=== PATIENT | male | born 1955 | race Caucasian/White ===

== ENCOUNTER 2016-08-31 08:55 | Observation (INO) | payer BC ==
[2016-08-31] MEDS ORDERED: ONDANSETRON 4 MG/2 ML VIAL IVP STA (09:11)
[2016-08-31] MEDS ORDERED: SODIUM CHLORIDE 0.9% 1,000 ML IV STA (09:11)
[2016-08-31 09:42] LABS: Basophils % (A) 1 %; CH 30.8; CHCM 35.1; Eosinophils # (A) 0.1 k/uL (0-0.7); Eosinophils % (A) 2 %; HCT 46.5 % (39.0-53.0); HDW 3.33; HGB 16.2 gm/dL (13.0-17.5); Luc # (Auto) 0.09; Luc % (Auto) 2; Lymphocytes # (A) 1.1 k/uL (1.0-4.8); Lymphocytes % (A) 25 %; MCH 30.7 pg (25.0-35.0); MCHC 34.8 g/dL (31.0-37.0); MCV 88.2 fL (80.0-100.0); Mean Platelet Volume 7.5; Monocytes # (A) 0.3 k/uL (0-1.0); Monocytes % (A) 6 %; Neutrophils # (A) 2.9 k/uL (1.3-7.7); Neutrophils % (A) 65 %; RBC 5.27 m/uL (4.30-5.90); WBC 4.5 k/uL (3.8-10.6); WBC (Perox) 4.53
--- NOTE | 2016-08-31 09:48 | CT ---
EXAMINATION TYPE: CT brain wo con DATE OF EXAM: 08/31/2016 9:44 AM COMPARISON: NONE HISTORY: 60-year-old male states near syncope and hypertension today. TECHNIQUE: Examination was done in axial plane without intravenous contrast. Coronal and sagittal reconstructio ns performed. CT DLP: 1150 mGycm Automated exposure control for dose reduction was used. FINDINGS: There is no evidence of acute intracranial hemorrhage, acute ischemic changes, mass, mass-effect, or extra-axial fluid collection. There is no effacement of cerebral sulci or basal subarachnoid cister ns. There is no hydrocephalus. There is no midline shift. Pham-white matter distinction is preserv ed. Paranasal sinuses and mastoid air cells are well pneumatized. Orbits and globes are intact. IMPRESSION: No acute intracranial abnormality seen.
--- NOTE | 2016-08-31 09:50 | XR ---
EXAMINATION TYPE: XR chest 2V DATE OF EXAM: 08/31/2016 9:45 AM COMPARISON: 07/04/2013 HISTORY: 60-year-old male with weakness TECHNIQUE: Frontal and lateral views FINDINGS: Heart is borderline enlarged. Aorta within normal limits.. No consolidation or pleural effusion seen. IMPRESSION: Borderline cardiomegaly without acute cardiopulmonary process.
[2016-08-31 09:53] LABS: ALT 53 U/L (21-72); AST 44 U/L (17-59); Alkaline Phosphatase 47 U/L (38-126); Anion Gap 13 mmol/L; Blood Urea Nitrogen 20 mg/dL (9-20); Calcium 8.8 mg/dL (8.4-10.2); Carbon Dioxide 25 mmol/L (22-30); Chloride 105 mmol/L (98-107); Glucose 114 mg/dL (74-99); Non-African American GFR(MDRD) 55 (>60 ml/min/1.73 sqM); Potassium 4.4 mmol/L (3.5-5.1); Sodium 143 mmol/L (137-145); Total Bilirubin 0.7 mg/dL (0.2-1.3); Total Protein 6.7 g/dL (6.3-8.2)
[2016-08-31 10:09] LABS: INR 1.1 (<1.1); Partial Thromboplastin Time 24.8 sec (22.0-30.0); Prothrombin Time 11.3 sec (9.0-12.0)
[2016-08-31 10:15] LABS: Troponin I 0.033 ng/mL (0.000-0.034)
[2016-08-31 10:16] LABS: Creatine Kinase MB 2.7 ng/mL (0.0-2.4)
[2016-08-31] MEDS ORDERED: ACETAMINOPHEN TAB 500 MG TAB PO STA (10:42)
[2016-08-31 10:54] LABS: Appearance,Urine Clear (Clear); Bilirubin,Urine Negative (Negative); Glucose,Urine (UA) Negative (Negative); Ketones,Urine Negative (Negative); Leukocyte Esterase,Urine Negative (Negative); Nitrite,Urine Negative (Negative); PH, Urine 5.5 (5.0-8.0); Protein,Urine Negative (Negative); Specific Gravity,Urine 1.008 (1.001-1.035); UA Billing (MACRO vs. MICRO) CHEM; Urobilinogen,Urine <2.0 mg/dL (<2.0)
[2016-08-31] MEDS ORDERED: NITROGLYCERIN SL TABS 0.4 MG TAB SUBLINGUAL PRN (11:38)
[2016-08-31] MEDS ORDERED: HEPARIN SODIUM,PORCINE 5,000 UNIT/ML 1 ML VIAL IV ONE (11:38)
[2016-08-31] MEDS ORDERED: ACETAMINOPHEN TAB 325 MG TAB PO PRN (11:38)
--- NOTE | 2016-08-31 11:38 | ED ---
Weakness HPI - General Chief complaint: Weakness Stated complaint: Weakness Time Seen by Provider: 08/31/16 08:55 Source: patient, EMS Mode of arrival: EMS Limitations: no limitations - History of Present Illness Initial comments: Draining about generalized weakness, he woke up this morning and didn't feel right he said he almost passed out he laid on the floor he felt nauseous but he didn't throw up he felt like he needs about moving his bowels but there was no bowel movement no diarrhea complaining about headache is concerned about his heart he has a history of heart disease. He has no chest pain he is not short winded no abdominal pain has nausea feel so weak and at home his blood pressure was elevated. Denies any blurred vision no slurred speech no signs of TIA or CVA no neck stiffness, review of system is negative otherwise - Related Data Home Medications Medication Instructions Recorded Confirmed Aspirin 81 mg PO DAILY 08/31/16 08/31/16 Clopidogrel [Plavix] 75 mg PO DAILY 08/31/16 08/31/16 Famotidine [Pepcid] 40 mg PO HS 08/31/16 08/31/16 Levothyroxine Sodium [Synthroid] 150 mcg PO DAILY 08/31/16 08/31/16 Lisinopril-Hctz 20-12.5 mg 1 tab PO DAILY 08/31/16 08/31/16 [Zestoretic 20-12.5] Metoprolol Tartrate [Lopressor] 25 mg PO QAM 08/31/16 08/31/16 Modafinil [Provigil] 200 mg PO DAILY 08/31/16 08/31/16 PARoxetine [Paxil] 20 mg PO HS 08/31/16 08/31/16 Rosuvastatin Calcium [Crestor] 40 mg PO HS 08/31/16 08/31/16 Allergies Allergy/AdvReac Type Severity Reaction Status Date / Time lactase [From Dairy Aid] Allergy Mild Rash/Hives Verified 08/31/16 10:03 Review of Systems ROS Statement: Those systems with pertinent positive or pertinent negative responses have been documented in the HPI. ROS Other: All systems not noted in ROS Statement are negative. Past Medical History Past Medical History: Coronary Artery Disease (CAD), Hypertension, Thyroid Disorder History of Any Multi-Drug Resistant Organisms: None Reported Past Surgical History: Bowel Resection Additional Past Surgical History / Comment(s): Cataract surgery, 2 Stents Past Psychological History: No Psychological Hx Reported Smoking Status: Never smoker Past Alcohol Use History: Occasional Past Drug Use History: None Reported General Exam - General Exam Comments Initial Comments: General: The patient is awake and alert, he looks pale and anxious Skin: Skin is warm and dry and no rashes or lesions are noted. Eye: Pupils are equal, round and reactive to light, extra-ocular movements are intact; there is normal conjunctiva bilaterally. Ears, nose, mouth and throat: There are moist mucous membranes and no oral lesions. Neck: The neck is supple, there is no tenderness Cardiovascular: There is a regular rate and rhythm. No murmur, rub or gallop is appreciated. Respiratory: To auscultation bilateral, no wheezing no rhonchi no distress respiratory warner noticed Gastrointestinal: Soft, non-distended, non-tender abdomen without masses or organomegaly noted. There is no rebound or guarding present. Bowel sounds are unremarkable. Back: There is no tenderness to palpation in the midline. There is no obvious deformity. Musculoskeletal: Normal ROM, no tenderness, There is no pedal edema. There is no calf tenderness or swelling. No cords were appreciated. Neurological: CN II-XII intact, Cranial nerves III through XII are intact. There are no obvious motor or sensory deficits. Coordination appears grossly intact. Speech is normal. Psychiatric: Cooperative, appropriate mood & affect, normal judgment. Limitations: no limitations Course Vital Signs 08/31/16 08/31/16 09:02 09:56 Temperature 98.3 F Pulse Rate 68 Pulse Rate [ 58 L Right Sitting] Pulse Rate [ 62 Right Standing] Pulse Rate [ 61 Right Supine] Respiratory 18 Rate Blood Pressure 153/79 Blood Pressure 154/85 [Left Arm Sitting] Blood Pressure 146/85 [Left Arm Standing] Blood Pressure 149/82 [Left Arm Supine] O2 Sat by Pulse 97 Oximetry EKG Findings - EKG Comments: EKG Findings:: EKG is a sinus bradycardia with a first-degree AV block, rate is 57 [place] interval is 228 QRS duration is 94 QT/QTc is 424/4 review of this EKG shows some flattening of the T-wave in aVF T-wave inversion in V1 no ST elevation noticed in this EKG Medical Decision Making - Lab Data Result diagrams: 08/31/16 09:20 08/31/16 09:20 Lab Results 08/31/16 08/31/16 08/31/16 Range/Units 09:20 09:20 09:20 WBC 4.5 (3.8-10.6) k/uL RBC 5.27 (4.30-5.90) m/uL Hgb 16.2 (13.0-17.5) gm/dL Hct 46.5 (39.0-53.0) % MCV 88.2 (80.0-100.0) fL MCH 30.7 (25.0-35.0) pg MCHC 34.8 (31.0-37.0) g/dL RDW 16.0 H (11.5-15.5) % Plt Count 167 (150-450) k/uL Neutrophils % 65 % Lymphocytes % 25 % Monocytes % 6 % Eosinophils % 2 % Basophils % 1 % Neutrophils # 2.9 (1.3-7.7) k/uL Lymphocytes # 1.1 (1.0-4.8) k/uL Monocytes # 0.3 (0-1.0) k/uL Eosinophils # 0.1 (0-0.7) k/uL Basophils # 0.0 (0-0.2) k/uL PT (9.0-12.0) sec INR (<1.1) APTT (22.0-30.0) sec Sodium 143 (137-145) mmol/L Potassium 4.4 (3.5-5.1) mmol/L Chloride 105 (98-107) mmol/L Carbon Dioxide 25 (22-30) mmol/L Anion Gap 13 mmol/L BUN 20 (9-20) mg/dL Creatinine 1.34 H (0.66-1.25) mg/dL Est GFR (MDRD) Af Amer >60 (>60 ml/min/1.73 sqM) Est GFR (MDRD) Non-Af 55 (>60 ml/min/1.73 sqM) Glucose 114 H (74-99) mg/dL Calcium 8.8 (8.4-10.2) mg/dL Total Bilirubin 0.7 (0.2-1.3) mg/dL AST 44 (17-59) U/L ALT 53 (21-72) U/L Alkaline Phosphatase 47 (38-126) U/L Total Creatine Kinase 169 (55-170) U/L CK-MB (CK-2) 2.7 H* (0.0-2.4) ng/mL CK-MB (CK-2) Rel Index 1.6 Troponin I 0.033 (0.000-0.034) ng/mL Total Protein 6.7 (6.3-8.2) g/dL Albumin 4.2 (3.5-5.0) g/dL TSH 2.650 (0.465-4.680) mIU/L Urine Color Urine Appearance (Clear) Urine pH (5.0-8.0) Ur Specific [place] (1.001-1.035) Urine Protein (Negative) Urine Glucose (UA) (Negative) Urine Ketones (Negative) Urine Blood (Negative) Urine Nitrate (Negative) Urine Bilirubin (Negative) Urine Urobilinogen (<2.0) mg/dL Ur Leukocyte Esterase (Negative) 08/31/16 08/31/16 Range/Units 09:20 09:45 WBC (3.8-10.6) k/uL RBC (4.30-5.90) m/uL Hgb (13.0-17.5) gm/dL Hct (39.0-53.0) % MCV (80.0-100.0) fL MCH (25.0-35.0) pg MCHC (31.0-37.0) g/dL RDW (11.5-15.5) % Plt Count (150-450) k/uL Neutrophils % % Lymphocytes % % Monocytes % % Eosinophils % % Basophils % % Neutrophils # (1.3-7.7) k/uL Lymphocytes # (1.0-4.8) k/uL Monocytes # (0-1.0) k/uL Eosinophils # (0-0.7) k/uL Basophils # (0-0.2) k/uL PT 11.3 (9.0-12.0) sec INR 1.1 (<1.1) APTT 24.8 (22.0-30.0) sec Sodium (137-145) mmol/L Potassium (3.5-5.1) mmol/L Chloride (98-107) mmol/L Carbon Dioxide (22-30) mmol/L Anion Gap mmol/L BUN (9-20) mg/dL Creatinine (0.66-1.25) mg/dL Est GFR (MDRD) Af Amer (>60 ml/min/1.73 sqM) Est GFR (MDRD) Non-Af (>60 ml/min/1.73 sqM) Glucose (74-99) mg/dL Calcium (8.4-10.2) mg/dL Total Bilirubin (0.2-1.3) mg/dL AST (17-59) U/L ALT (21-72) U/L Alkaline Phosphatase (38-126) U/L Total Creatine Kinase (55-170) U/L CK-MB (CK-2) (0.0-2.4) ng/mL CK-MB (CK-2) Rel Index Troponin I (0.000-0.034) ng/mL Total Protein (6.3-8.2) g/dL Albumin (3.5-5.0) g/dL TSH (0.465-4.680) mIU/L Urine Color Light Yellow Urine Appearance Clear (Clear) Urine pH 5.5 (5.0-8.0) Ur Specific [place] 1.008 (1.001-1.035) Urine Protein Negative (Negative) Urine Glucose (UA) Negative (Negative) Urine Ketones Negative (Negative) Urine Blood Negative (Negative) Urine Nitrate Negative (Negative) Urine Bilirubin Negative (Negative) Urine Urobilinogen <2.0 (<2.0) mg/dL Ur Leukocyte Esterase Negative (Negative) Critical Care Time Total Critical Care Time: 35 Critical Care Time: She came in with her not feeling well and he said he got very close to passing out he laid on the floor and he didn't totally pass out he was concerned about his heart his troponin and he is 0.033 which is very high end of normal with a history of heart disease in multiple risk factors medical bed and heparinize him he agrees with that he'll be discharged he be admitted to Dr. Muniz service and cardiology be consulted Disposition Clinical Impression: Pre-syncope, Generalized weakness, Ischemic heart disease Disposition: ADMITTED IP TO THIS HOSP Condition: Good
[2016-08-31] MEDS: HEPARIN SODIUM,PORCINE/D5W PMX 25,000 UNIT in DEXTROSE/WATER 1 500ML.BAG IV SCH (12:17)
[2016-08-31] MEDS: NAPROXEN 250 MG TAB PO PRN (16:39)
[2016-08-31 16:40] LABS: Troponin I 0.027 ng/mL (0.000-0.034)
[2016-08-31] MEDS: SODIUM CHLORIDE 0.9% 1,000 ML IV SCH (16:40)
--- NOTE | 2016-08-31 19:18 | HP ---
Patient is a 60-year-old gentleman with a known history of coronary artery disease and multiple stents in place and had a stress test that was done about a couple months ago which was essentially negative, came in with complaints of generalized fatigue, did not feel well and almost passed out, laid on the floor, felt nauseous. Denied any chest pain. Denied any lightheadedness, diaphoresis. Patient's present symptoms are not similar to the symptoms when he had a myocardial infarction in the past. Patient denied any present chest pain. Patient denied any cough, runny nose. REVIEW OF SYSTEMS: CONSTITUTIONAL: No fever, no malaise, no fatigue. HEENT: No recent visual problems or hearing problems. Denied any sore throat. CARDIOVASCULAR: No chest pain, orthopnea, PND, no palpitations, no syncope. PULMONARY: No shortness of breath, no cough, no hemoptysis. GASTROINTESTINAL: No diarrhea, no nausea, no vomiting, no abdominal pain. Normoactive bowel sounds. NEUROLOGICAL: No headaches, no weakness, no numbness. HEMATOLOGICAL: Denies any bleeding or petechiae. GENITOURINARY: Denies any burning micturition, frequency, or urgency. MUSCULOSKELETAL/RHEUMATOLOGICAL: Denies any joint pain, swelling, or any muscle pain. ENDOCRINE: Denies any polyuria or polydipsia. The rest of the 14 point review of systems is negative. HOME MEDICATIONS: 1. Aspirin. 2. Plavix. 3. Famotidine. 4. Levothyroxine. 5. Lisinopril/hydrochlorothiazide. 6. Metoprolol. 7. Modafinil. 8. Paroxetine and 9. Lovastatin. ALLERGIES: ALLERGIC TO LACTASE. PAST MEDICAL HISTORY: Coronary artery disease with multiple stents in the past, hypertension, hypothyroidism, bowel resection surgery in the past. SOCIAL HISTORY: Denied smoking, alcohol abuse or any drug abuse. FAMILY HISTORY: Significant for hypertension, coronary artery disease in the family. PHYSICAL EXAMINATION: VITAL SIGNS: Temperature 98.0, pulse of 58, respiratory rate of 18, blood pressure is 154/85, saturating at 95% on room air. GENERAL: Morbidly obese, alert and oriented x3, not in any acute distress. Well developed, well nourished. HEENT: Pupils are round and equally reacting to light. EOMI. No scleral icterus. No conjunctival pallor. Normocephalic, atraumatic. No pharyngeal erythema. No thyromegaly. CARDIOVASCULAR: S1 and S2 present. No murmurs, rubs, or gallops. PULMONARY: Chest is clear to auscultation, no wheezing or crackles. ABDOMEN: Soft, nontender, nondistended, normoactive bowel sounds. No palpable organomegaly. MUSCULOSKELETAL: No joint swelling or deformity. EXTREMITIES: No cyanosis, clubbing, or pedal edema. NEUROLOGICAL: Gross neurological examination did not reveal any focal deficits. SKIN: No rashes. LABORATORY DATA: EKG showed some bradycardia with first-degree AV block. CBC, CMP, essentially within normal limits except for elevated creatinine of 1.34. I do not know his BUN. Orthostatic vitals are negative. CBC essentially within normal limits. Chest x-ray was reviewed; essentially negative ( ). Patient has minimally elevated troponin of 0.033, because of which ER is concerned and because of his history, patient is admitted. UA is essentially negative. ASSESSMENT AND PLAN: 1. Mildly elevated troponins probably related to his renal failure. Patient does not have any symptoms consistent with acute myocardial infarction. Anyway, patient was ruled out with 2 more sets of troponins and EKG and Cardiology was counseled concerning his previous history. 2. Morbid obesity with sleep apnea. Continue with continuous positive airway pressure machine at home. 3. Significant family history of coronary artery disease in the past. 4. Hypertension. 5. Hypothyroidism. 6. Possible mild acute renal failure probably related to medications include lisinopril and hydrochlorothiazide. I will hold those today. Patient will be on IV fluids and will monitor him today. Will repeat kidney function and electrolytes, input and output, and possibility of discharge tomorrow. 7. I will leave the decision of further testing for possibility of acute coronary syndrome because of elevated troponins to Cardiology.
[2016-08-31] MEDS: MORPHINE SULFATE 4 MG/ML SYRINGE IV PRN (20:43)
[2016-08-31] MEDS: ATORVASTATIN 80 MG TAB PO SCH (20:44)
[2016-08-31] MEDS: PARoxetine 20 MG TAB PO SCH (20:44)
[2016-08-31] MEDS: FAMOTIDINE 20 MG TAB PO SCH (20:44)
[2016-08-31 21:22] LABS: Troponin I 0.027 ng/mL (0.000-0.034)
[2016-08-31 21:24] LABS: Creatine Kinase MB 3.1 ng/mL (0.0-2.4)
[2016-08-31] MEDS ORDERED: HEPARIN SODIUM,PORCINE 5,000 UNIT/ML 1 ML VIAL IV PRN (21:31)
[2016-09-01 03:46] LABS: Anisocytosis Slight; CH 30.6; CHCM 34.2; HDW 3.25; HGB 16.7 gm/dL (13.0-17.5); MCH 30.7 pg (25.0-35.0); MCHC 34.1 g/dL (31.0-37.0); Mean Platelet Volume 6.8; RBC 5.45 m/uL (4.30-5.90)
[2016-09-01 03:54] LABS: Glucose,Whole Blood 97 mg/dL (75-99)
[2016-09-01] MEDS: MORPHINE SULFATE 4 MG/ML SYRINGE IV PRN ×2 (03:57→12:44)
[2016-09-01 04:17] LABS: Anion Gap 13 mmol/L; Blood Urea Nitrogen 18 mg/dL (9-20); Calcium 8.9 mg/dL (8.4-10.2); Carbon Dioxide 23 mmol/L (22-30); Chloride 108 mmol/L (98-107); Cholesterol 104 mg/dL (<200); Glucose 90 mg/dL (74-99); HDL Cholesterol 28 mg/dL (40-60); Non-African American GFR(MDRD) 55 (>60 ml/min/1.73 sqM); Potassium 4.6 mmol/L (3.5-5.1); Sodium 144 mmol/L (137-145); Triglycerides 230 mg/dL (<150)
[2016-09-01] MEDS: LEVOTHYROXINE 75 MCG TAB PO SCH (06:42)
[2016-09-01 07:55] VITALS: RESP 18
[2016-09-01] MEDS ORDERED: ONDANSETRON 4 MG/2 ML VIAL IVP PRN (08:39)
[2016-09-01] MEDS ORDERED: METOPROLOL TARTRATE 25 MG TAB PO SCH (09:00)
[2016-09-01] MEDS ORDERED: LISINOPRIL-HCTZ 20-12.5 MG 1 EACH TAB PO SCH (09:00)
--- NOTE | 2016-09-01 10:24 | P.CRDCN ---
History of Present Illness Consult date: 09/01/16 History of present illness: This is a 60-year-old gentleman with history of coronary artery disease and multiple stents being followed by Dr. KARLY Kwon came yesterday with complaints of not feeling well lightheaded and as if could pass out. Patient hardly could walk to the car. Did not have any chest pain. He is troponin values are borderline elevated. However the pattern is not consistent with any acute coronary syndrome and patient did not have any chest pain. In June of last year patient had a stress test that was negative for ischemia. This morning patient is again feeling very sick and nauseated having loose bowel movements and hyperactive bowels. Also complaints of pain in the low back in the sacroiliac area. His symptoms appear to be more systemic and could be related to viral infection. I'm not doing any further cardiac workup at this time. We' ll recheck his blood pressure for postural changes. Review of Systems As per the chart Past Medical History Past Medical History: Coronary Artery Disease (CAD), Hyperlipidemia, Hypertension, Thyroid Disorder Additional Past Medical History / Comment(s): Tess's dx, hypothyroid, diverticular dx. History of Any Multi-Drug Resistant Organisms: None Reported Past Surgical History: Bowel Resection, Heart Catheterization With Stent Additional Past Surgical History / Comment(s): Total of 5 coronary stents, bowel resection due to diverticular dx-sigmoid colon removed and had colostomy with everntual reversal, colonoscopies, bilateral cataract surgery with lens implants, Past Anesthesia/Blood Transfusion Reactions: No Reported Reaction Additional Past Anesthesia/Blood Transfusion Reaction / Comment(s): Pt does have clausterphobia. Date of Last Stent Placement:: 2012 Past Psychological History: No Psychological Hx Reported Additional Psychological History / Comment(s): Pt resides with his spouse. He is independent. Smoking Status: Never smoker Past Alcohol Use History: Occasional Past Drug Use History: None Reported - Past Family History Father History Unknown: Yes Additional Family Medical History / Comment(s): Father yrs ago in a MVA. Mother Family Medical History: Dementia Additional Family Medical History / Comment(s): Mother is 79yrs old and has severe dementia. Medications and Allergies Home Medications Medication Instructions Recorded Confirmed Type Aspirin 81 mg PO DAILY 08/31/16 08/31/16 History Clopidogrel [Plavix] 75 mg PO DAILY 08/31/16 08/31/16 History Famotidine [Pepcid] 40 mg PO HS 08/31/16 08/31/16 History Levothyroxine Sodium [Synthroid] 150 mcg PO DAILY 08/31/16 08/31/16 History Lisinopril-Hctz 20-12.5 mg 1 tab PO DAILY 08/31/16 08/31/16 History [Zestoretic 20-12.5] Metoprolol Tartrate [Lopressor] 25 mg PO QA 08/31/16 08/31/16 History Modafinil [Provigil] 200 mg PO DAILY 08/31/16 08/31/16 History PARoxetine [Paxil] 20 mg PO HS 08/31/16 08/31/16 History Rosuvastatin Calcium [Crestor] 40 mg PO HS 08/31/16 08/31/16 History Allergies Allergy/AdvReac Type Severity Reaction Status Date / Time lactase [From Dairy Aid] Allergy Mild Rash/Hives Verified 08/31/16 10:03 Physical Exam Vitals: Vital Signs Temp Pulse Resp BP Pulse Ox 09/01/16 07:53 97.7 F 61 18 123/62 96 09/01/16 05:30 98.1 F 61 16 132/80 97 09/01/16 04:00 54 L 18 09/01/16 03:55 98.7 F 56 L 18 131/85 98 09/01/16 00:00 98.0 F 58 L 16 140/73 96 08/31/16 20:00 98.0 F 53 L 16 162/90 95 08/31/16 16:00 18 08/31/16 15:47 98.2 F 56 L 18 133/80 95 08/31/16 12:45 98.1 F 51 L 18 164/84 97 08/31/16 12:00 18 Intake and Output 08/31/16 09/01/16 09/01/16 22:59 06:59 14:59 Intake Total 789.333 Balance 789.333 Intake: Intake, IV Titration 189.333 Amount Heparin Sodium,Porcine/ 189.333 D5w Pmx 25,000 unit In Dextrose/Water 1 500ml. bag @ 8.48 UNITS/KG/HR 20 mls/hr IV .Q24H PORSHA Rx#: [id number] Oral 600 Other: Voiding Method Toilet Toilet # Voids 2 2 GENERAL EXAM: Patient is alert and oriented and doesn't appear to be in any acute distress HEENT: Normocephalic. Normal reaction of pupils, equal size, normal range of extraocular motion. No erythema or exudates in the throat. NECK: No masses, no nuchal rigidity. CHEST: No chest wall deformity. LUNGS: Equal air entry with no crackles or wheeze. HEART: S1 and S2 normal with no audible mumurs or gallops. Regular rhythm, femorals equal on both sides.. ABDOMEN: No hepatosplenomegaly, normal bowel sounds, no guarding or rigidity. Hyperactive bowels SKIN: No rashes CENTRAL NERVOUS SYSTEM: No focal deficits. EXTREMITIES: No cyanosis, clubbing or edema. Results 09/01/16 03:22 09/01/16 03:22 Cardiac Enzymes 08/31/16 08/31/16 Range/Units 15:30 20:35 CK-MB (CK-2) 3.0 H* 3.1 H* (0.0-2.4) ng/mL Troponin I 0.027 0.027 (0.000-0.034) ng/mL Coagulation 08/31/16 09/01/16 Range/Units 20:35 03:22 APTT 32.2 H 46.5 H (22.0-30.0) sec Lipids 09/01/16 Range/Units 03:22 Triglycerides 230 H (<150) mg/dL Cholesterol 104 (<200) mg/dL HDL Cholesterol 28 L (40-60) mg/dL CBC 09/01/16 Range/Units 03:22 WBC 8.0 (3.8-10.6) k/uL RBC 5.45 (4.30-5.90) m/uL Hgb 16.7 (13.0-17.5) gm/dL Hct 49.0 (39.0-53.0) % Plt Count 151 (150-450) k/uL Comprehensive Metabolic Panel 09/01/16 Range/Units 03:22 Sodium 144 (137-145) mmol/L Potassium 4.6 (3.5-5.1) mmol/L Chloride 108 H (98-107) mmol/L Carbon Dioxide 23 (22-30) mmol/L BUN 18 (9-20) mg/dL Creatinine 1.33 H (0.66-1.25) mg/dL Glucose 90 (74-99) mg/dL Calcium 8.9 (8.4-10.2) mg/dL Current Medications Generic Name Dose Route Start Last Admin Trade Name Freq PRN Reason Stop Dose Admin Acetaminophen 650 mg 08/31/16 11:38 Tylenol Tab PO Q4HR PRN Pain Aspirin 325 mg 09/01/16 09:00 Aspirin PO DAILY [facility] Atorvastatin Calcium 80 mg 08/31/16 21:00 08/31/16 20:44 Lipitor PO Not Given HS [facility] Clopidogrel Bisulfate 75 mg 09/01/16 09:00 Plavix PO DAILY [facility] Famotidine 40 mg 08/31/16 21:00 08/31/16 20:44 Pepcid PO 40 mg HS PORSHA Administration Lisinopril/HCTZ 1 each 09/01/16 09:00 Zestoretic 20-12.5 PO DAILY [facility] Heparin Sodium (Porcine) 0 unit 08/31/16 21:31 08/31/16 21:47 Heparin IV 4,000 unit PER PROTOCOL PRN Administration Low PTT Protocol Heparin Sodium/Dextrose 25,000 500 mls @ 20 mls/hr 08/31/16 11:45 08/31/16 21 :45 unit/ IV Solution IV 11.53 units/kg/hr .Q24H PORSHA 27.2 mls/hr Protocol Titration 8.48 UNITS/KG/HR Sodium Chloride 1,000 mls @ 100 mls/hr 08/31/16 14:45 08/31/16 16:40 Saline 0.9% IV 100 mls/hr .Q10H PORSHA Administration Levothyroxine Sodium 150 mcg 09/01/16 06:30 09/01/16 06:42 Synthroid PO Not Given DAILY@0630 [facility] Metoprolol Succinate 25 mg 09/01/16 09:00 Toprol Xl PO DAILY [facility] Modafinil 200 mg 09/01/16 09:00 Provigil PO DAILY [facility] Morphine Sulfate 4 mg 08/31/16 11:38 09/01/16 03:57 Morphine Sulfate (Inj) IV 4 mg Q5M PRN Administration Chest Pain Naproxen 250 mg 08/31/16 16:05 08/31/16 16:39 Naprosyn PO 250 mg QID PRN Administration Headache Nitroglycerin 0.4 mg 08/31/16 11:38 Nitrostat SUBLINGUAL Q5M PRN Chest Pain Ondansetron HCl 4 mg 09/01/16 08:39 Zofran IVP Q6HR PRN Nausea And Vomiting Paroxetine HCl 20 mg 08/31/16 21:00 08/31/16 20:44 Paxil PO 20 mg HS PORSHA Administration Intake and Output 08/31/16 09/01/16 09/01/16 22:59 06:59 14:59 Intake Total 789.333 Balance 789.333 Intake: Intake, IV Titration 189.333 Amount Heparin Sodium,Porcine/ 189.333 D5w Pmx 25,000 unit In Dextrose/Water 1 500ml. bag @ 8.48 UNITS/KG/HR 20 mls/hr IV .Q24H POR[facility] Rx#: [id number] Oral 600 Other: Voiding Method Toilet Toilet # Voids 2 2 09/01/16 03:22 09/01/16 03:22 EKG Interpretations (text) Sinus rhythm Assessment and Plan (1) Diarrhea Status: Acute (2) Nausea Status: Acute (3) Dizziness Status: Acute (4) Back pain Status: Acute (5) History of coronary artery disease Status: Acute Plan: Patient's symptoms appear to be could be systemic while infection or gastroenteritis. I do not see any cardiac issues at this time. His recent stress test in June of last year was negative. No further cardiac workup is suggested at this time. May get a GI consult
[2016-09-01 10:57] VITALS: BMI 37.0
[2016-09-01 14:50] LABS: Amylase 32 U/L (30-110)
[2016-09-01] MEDS: ASPIRIN 325 MG TAB PO SCH (16:28)
[2016-09-01] MEDS: METOPROLOL SUCCINATE (ER) 25 MG TAB.ER.24H PO SCH (16:29)
[2016-09-01] MEDS: CLOPIDOGREL 75 MG TAB PO SCH (16:29)
[2016-09-01] MEDS: LISINOPRIL-HCTZ 20-12.5 MG 1 EACH TAB PO SCH (16:29)
[2016-09-01] MEDS: HEPARIN SODIUM,PORCINE/D5W PMX 25,000 UNIT in DEXTROSE/WATER 1 500ML.BAG IV SCH (17:30)
[2016-09-01] MEDS: MODAFINIL 200 MG TAB PO SCH (18:12)
[2016-09-01] MEDS: SODIUM CHLORIDE 0.9% 1,000 ML IV SCH ×3 (18:12→20:59)
[2016-09-01] MEDS: NAPROXEN 250 MG TAB PO PRN (18:13)
[2016-09-01 19:46] LABS: Appearance,Urine Clear (Clear); Bilirubin,Urine Negative (Negative); Glucose,Urine (UA) Negative (Negative); Ketones,Urine Negative (Negative); Leukocyte Esterase,Urine Negative (Negative); Nitrite,Urine Negative (Negative); PH, Urine 5.5 (5.0-8.0); Protein,Urine Negative (Negative); Specific Gravity,Urine 1.011 (1.001-1.035); UA Billing (MACRO vs. MICRO) CHEM; Urobilinogen,Urine <2.0 mg/dL (<2.0)
[2016-09-01] MEDS: PARoxetine 20 MG TAB PO SCH (20:58)
[2016-09-01] MEDS: PANTOPRAZOLE 40 MG/10 ML VIAL IVP SCH (20:58)
[2016-09-01] MEDS: ATORVASTATIN 80 MG TAB PO SCH (20:58)
[2016-09-01] MEDS: FAMOTIDINE 20 MG TAB PO SCH (20:58)
--- NOTE | 2016-09-01 22:39 | PN ---
This patient is a 60-year-old with multiple ( ) in the past and patient is admitted with some non-specific symptoms of generalized ( ). Patient was ruled out acute coronary syndromes and was ( ) by Cardiology, but patient started having fever today, because of which I am doing ingram cultures, including blood culture, urine culture, UA. Chest x-ray from yesterday did not show any pneumonic process. Patient is complaining of generalized body aches and patient started having diarrhea. Will also obtain C difficile. Patient probably has viral gastroenteritis at this point of time. Patient was having nausea as well. Continue with Protonix. Increase the fluids to 125 mL. REVIEW OF SYSTEMS: CARDIOVASCULAR: No chest pain, no orthopnea, no PND, no palpitations. PULMONARY: Denied any shortness of breath. No cough or hemoptysis. GASTROINTESTINAL: No diarrhea, nausea or vomiting. No abdominal pain. Normoactive bowel sounds. NEUROLOGIC: No headaches, no weakness, no numbness. GENERAL: As described in HPI. Medications were reviewed. Medication changes as mentioned above. PHYSICAL EXAMINATION: VITAL SIGNS: Temperature 100.0, pulse of 70, respiratory rate of 18. Blood pressure is 150/80. Saturating at 95% on room air. GENERAL: The patient is alert and oriented x3, not in any acute distress. Well developed, well nourished. HEENT: Pupils are round and equally reacting to light. EOMI. No scleral icterus. No conjunctival pallor. Normocephalic, atraumatic. No pharyngeal erythema. No thyromegaly. CARDIOVASCULAR: S1 and S2 present. No murmurs, rubs, or gallops. PULMONARY: Chest is clear to auscultation, no wheezing or crackles. ABDOMEN: Soft, nontender, nondistended, normoactive bowel sounds. No palpable organomegaly. MUSCULOSKELETAL: No joint swelling or deformity. EXTREMITIES: No cyanosis, clubbing, or pedal edema. NEUROLOGICAL: Gross neurological examination did not reveal any focal deficits. SKIN: No rashes. LABORATORY DATA: CBC, CMP no significant abnormality was appreciated. Improved creatinine to 1.1 from 1.34. ASSESSMENT AND PLAN: 1. Nausea, vomiting, diarrhea with fevers. Ingram cultures will be obtained, as mentioned above, to rule out any other bacterial infectious source, but most probably patient has viral gastroenteritis. Will watch him here and also will obtain C difficile testing. 2. Mildly elevated troponins that are related to renal failure. Patient came in with light-headedness. Planning to hold on the hydrochlorothiazide and Lisinopril. Patient's blood pressure is very good in spite of the discontinuation of these medications. 3. Morbid obesity with sleep apnea. Continue CPAP machine at home. 4. Coronary artery disease. 5. Hypertension. 6. Hypothyroidism. 7. Mild renal failure, improved with discontinuation of above-mentioned medication and IV fluids. IV fluids will be increased because of his multiple episodes of diarrhea today because of probable viral gastroenteritis.
[2016-09-02] MEDS: LEVOTHYROXINE 75 MCG TAB PO SCH (06:00)
[2016-09-02] MEDS: SODIUM CHLORIDE 0.9% 1,000 ML IV SCH (06:04)
[2016-09-02 07:55] LABS: CHCM 34.6; HCT 42.3 % (39.0-53.0); HDW 3.21; MCH 29.9 pg (25.0-35.0); MCV 90.3 fL (80.0-100.0); Mean Platelet Volume 7.7; RBC 4.68 m/uL (4.30-5.90); WBC 3.9 k/uL (3.8-10.6)
[2016-09-02 08:00] LABS: Anion Gap 7 mmol/L; Blood Urea Nitrogen 18 mg/dL (9-20); Calcium 7.5 mg/dL (8.4-10.2); Carbon Dioxide 26 mmol/L (22-30); Chloride 107 mmol/L (98-107); Glucose 89 mg/dL (74-99); Non-African American GFR(MDRD) 57 (>60 ml/min/1.73 sqM); Potassium 3.8 mmol/L (3.5-5.1); Sodium 140 mmol/L (137-145)
--- NOTE | 2016-09-02 08:02 | P.PN ---
Subjective Principal diagnosis: Diarrhea This is a pleasant 60-year-old male patient who sees Dr. KARLY Kwon as an outpatient with a known history of CAD and prior angioplasty and stenting in the past, hypertension, and dyslipidemia was admitted to the hospital with gastrointestinal symptoms consistent was diarrhea. The patient did not experience any symptoms of chest pain or chest discomfort. The cardiac enzymes were checked and came in to be slightly abnormal but not consistent with acute myocardial infarction. I'll follow-up with the patient today, he is feeling better and the diarrhea has improved. From the cardiovascular standpoint of view, the patient can be discharged home. Objective - Vital Signs Vital signs: Vital Signs Temp 98.0 F 09/02/16 07:47 Pulse 63 09/02/16 07:47 Resp 18 09/02/16 07:47 BP 136/85 09/02/16 07:47 Pulse Ox 95 09/02/16 07:54 Intake & Output 09/01/16 09/02/16 09/02/16 18:59 06:59 18:59 Intake Total 836 500 Output Total 3 400 Balance 833 100 Weight 120.4 kg Intake: Intake, IV Titration 250 Amount Sodium Chloride 0.9% 1, 250 000 ml @ 100 mls/hr IV . Q10H PORSHA Rx#:[id number] Oral 836 250 Output: Urine 400 Urine/Stool Mix 3 Other: Voiding Method Toilet Toilet # Voids 2 1 - Constitutional General appearance: Present: no acute distress - Respiratory Respiratory: bilateral: CTA - Cardiovascular Rhythm: regular Heart sounds: normal: S1, S2 - Labs CBC & Chem 7: 09/01/16 03:22 09/01/16 03:22 Labs: Microbiology - Last 24 Hours (Table) 09/01/16 19:30 Urine Culture - Preliminary Urine,Voided 09/01/16 10:45 Stool Culture - Preliminary Stool Assessment and Plan Plan: Assessment #1 gastrointestinal symptoms consistent of diarrhea #2 known CAD and prior angioplasty and stenting #3 multiple comorbid conditions Plan #1 from the cardiac standpoint the patient can be discharged home #2 he is to follow-up with Dr. KARLY Kwon as an outpatient
[2016-09-02] MEDS: ASPIRIN 325 MG TAB PO SCH (09:16)
[2016-09-02] MEDS: CLOPIDOGREL 75 MG TAB PO SCH (09:17)
[2016-09-02] MEDS: PANTOPRAZOLE 40 MG/10 ML VIAL IVP SCH (09:17)
[2016-09-02] MEDS: LISINOPRIL-HCTZ 20-12.5 MG 1 EACH TAB PO SCH (09:17)
[2016-09-02] MEDS: METOPROLOL SUCCINATE (ER) 25 MG TAB.ER.24H PO SCH (09:17)
[2016-09-02] MEDS: MODAFINIL 200 MG TAB PO SCH (09:18)
[2016-09-02 12:14] VITALS: BP 160/79; TEMP 97.5
[2016-09-02 12:16] VITALS: PULSE 55
--- NOTE | 2016-09-03 14:51 | DS ---
DATE OF ADMISSION: 08/31/2016 DATE OF DISCHARGE: 09/02/2016 Patient is admitted with nonspecific symptoms of generalized weakness and tiredness and patient had a near syncopal episode, all of which are probably due to viral gastroenteritis. Patient was ruled out acute coronary artery syndrome. Cleared by Cardiology and patient was treated for viral gastroenteritis. Patient has a low-grade fever. We have obtained septic work-up all of which is negative so far and patient is feeling much better today and patient denied any diarrhea today. Patient denied any nausea, vomiting, although I believe his near syncopal episode is due to low blood pressure one because of which I decided the hydrochlorothiazide-lisinopril combination was discontinued and patient will be sent home on a low dose of lisinopril and patient was asked to take blood pressure daily at home, taken to Dr. Rowe for further management. The patient was seen and examined on the day of discharge, vitals are stable. PHYSICAL EXAMINATION: GENERAL: The patient is alert and oriented x3, not in any acute distress. Well developed, well nourished. HEENT: Pupils are round and equally reacting to light. EOMI. No scleral icterus. No conjunctival pallor. Normocephalic, atraumatic. No pharyngeal erythema. No thyromegaly. CARDIOVASCULAR: S1 and S2 present. No murmurs, rubs, or gallops. PULMONARY: Chest is clear to auscultation, no wheezing or crackles. ABDOMEN: Soft, nontender, nondistended, normoactive bowel sounds. No palpable organomegaly. MUSCULOSKELETAL: No joint swelling or deformity. EXTREMITIES: No cyanosis, clubbing, or pedal edema. NEUROLOGICAL: Gross neurological examination did not reveal any focal deficits. SKIN: No rashes. FINAL DIAGNOSES: 1. Nausea, vomiting due to gastroenteritis, near syncopal episode secondary to low blood pressure which is again secondary to gastroenteritis versus medications. 2. Elevated troponin due to renal failure. The patient does have renal failure, not sure if it is acute or chronic. It is expected to improve with decreasing the dose of lisinopril and can discontinuation of hydrochlorothiazide. 3. Morbid obesity and sleep apnea. 4. Coronary artery disease. 5. Hypertension. 6. Hypothyroidism. Patient will be discharged today in stable medical condition to home. Activity as tolerated. Cardiac diet. Follow with Dr. Brendan Rowe in 3 to 7 days, Dr. Arturo Kwon in about week.
== END 2016-09-02 15:42 | disposition home or self-care (01) ==
LOC: EC 08:55 → 3OBS 11:38
PROVIDERS: ADMIT Internal Medicine; ATTEND Internal Medicine
DX: A08.4 Viral intestinal infection, unspecified (principal); R55 Syncope and collapse; I95.9 Hypotension, unspecified; N19 Unspecified kidney failure; E66.01 Morbid (severe) obesity due to excess calories; Z68.37 Body mass index [BMI] 37.0-37.9, adult; G47.30 Sleep apnea, unspecified; I10 Essential (primary) hypertension; E03.9 Hypothyroidism, unspecified; I25.10 Atherosclerotic heart disease of native coronary artery without angina pectoris; I25.2 Old myocardial infarction; Z95.5 Presence of coronary angioplasty implant and graft; Z79.899 Other long term (current) drug therapy; Z79.02 Long term (current) use of antithrombotics/antiplatelets; Z79.82 Long term (current) use of aspirin; Z82.49 Family history of ischemic heart disease and other diseases of the circulatory system
CPT/HCPCS: 99291; 96365; 96376; 96361 ×2; 36415; 94760; 93005; 80061; 80053; 80048 ×2; 82150; 82550; 82553; 83690; 84443; 84484; 85025; 85027 ×2; 85610; 85730 ×2; 81003 ×2; 87040; 87086; 87045; 87046; 80299; 71020; 70450; G0378 ×3; J2270 ×2; J1644 ×2; C9113 ×2; 87324; 96366; 96375

== ENCOUNTER 2016-09-06 21:25 | Emergency (ER) | payer BC ==
[2016-09-06 21:34] VITALS: PULSE 69; RESP 16; TEMP 97.4
[2016-09-06] MEDS ORDERED: OXYMETAZOLINE 0.05% NASL SPRAY 15 ML NASAL STA (21:51)
--- NOTE | 2016-09-06 21:51 | ED ---
ENT HPI - General Chief complaint: ENT Stated complaint: Epistaxis Time Seen by Provider: 09/06/16 21:26 Source: patient, EMS, RN notes reviewed Mode of arrival: EMS Limitations: no limitations - History of Present Illness Initial comments: 60 yo male presents to the ER with epistaxis. Patient states this started at home. Patient states his left about 20 minutes did not stop. Patient states that he felt like his blood pressures inspected that time. Patient states they call EMS due to the fact that it was bleeding and they did not note else to do. Patient was recently change in his blood pressure medication. Patient states he hasn't had any fever or chills. Patient denies any picking of the nose. Patient states it is not currently having any other symptoms at this time. Patient denies any recent fever, chills, shortness of breath, chest pain, back pain, abdominal pain, nausea vomiting, numbness or tingling, dysuria or hematuria, constipation or diarrhea, headaches or visual changes, or any other current symptoms. - Related Data Home Medications Medication Instructions Recorded Confirmed Clopidogrel [Plavix] 75 mg PO DAILY 08/31/16 08/31/16 Levothyroxine Sodium [Synthroid] 150 mcg PO DAILY 08/31/16 08/31/16 Metoprolol Tartrate [Lopressor] 25 mg PO [facility] 08/31/16 08/31/16 Modafinil [Provigil] 200 mg PO DAILY 08/31/16 08/31/16 PARoxetine [Paxil] 20 mg PO HS 08/31/16 08/31/16 Rosuvastatin Calcium [Crestor] 40 mg PO HS 08/31/16 08/31/16 Aspirin EC [Ecotrin Low Dose] 81 mg PO HS 09/06/16 09/06/16 Famotidine [Pepcid] 40 mg PO HS 09/06/16 09/06/16 Previous Rx's Medication Instructions Recorded Lisinopril [Prinivil] 10 mg PO DAILY #30 tab 09/02/16 Allergies Allergy/AdvReac Type Severity Reaction Status Date / Time Milk Containing Products Allergy Severe Rash/Hives/ Verified 09/06/16 21:54 [Dairy] Diarrhea Review of Systems ROS Statement: Those systems with pertinent positive or pertinent negative responses have been documented in the HPI. ROS Other: All systems not noted in ROS Statement are negative. Past Medical History Past Medical History: Coronary Artery Disease (CAD), Hyperlipidemia, Hypertension, Thyroid Disorder Additional Past Medical History / Comment(s): Tess's dx, hypothyroid, diverticular dx. History of Any Multi-Drug Resistant Organisms: None Reported Past Surgical History: Bowel Resection, Heart Catheterization With Stent Additional Past Surgical History / Comment(s): Total of 5 coronary stents, bowel resection due to diverticular dx-sigmoid colon removed and had colostomy with everntual reversal, colonoscopies, bilateral cataract surgery with lens implants, Past Anesthesia/Blood Transfusion Reactions: No Reported Reaction Additional Past Anesthesia/Blood Transfusion Reaction / Comment(s): Pt does have clausterphobia. Date of Last Stent Placement:: 2012 Past Psychological History: No Psychological Hx Reported Additional Psychological History / Comment(s): Pt resides with his spouse. He is independent. Smoking Status: Never smoker Past Alcohol Use History: Occasional Past Drug Use History: None Reported - Past Family History Father History Unknown: Yes Additional Family Medical History / Comment(s): Father yrs ago in a MVA. Mother Family Medical History: Dementia Additional Family Medical History / Comment(s): Mother is 79yrs old and has severe dementia. General Exam Limitations: no limitations General appearance: alert, in no apparent distress Head exam: Present: atraumatic, normocephalic, normal inspection Eye exam: Present: normal appearance, EOMI ENT exam: Present: normal oropharynx, mucous membranes moist, normal external ear exam, other (No active bleeding at this time) Neck exam: Present: normal inspection. Absent: tenderness, meningismus, lymphadenopathy Respiratory exam: Present: normal lung sounds bilaterally. Absent: respiratory distress, wheezes, rales, rhonchi, stridor Cardiovascular Exam: Present: regular rate, normal rhythm, normal heart sounds. Absent: systolic murmur, diastolic murmur, rubs, gallop, clicks Neurological exam: Present: alert, oriented X3, CN II-XII intact. Absent: motor sensory deficit Psychiatric exam: Present: normal affect, normal mood Skin exam: Present: warm, dry, intact, normal color. Absent: rash Course Vital Signs 09/06/16 09/06/16 21:33 21:56 Temperature 97.4 F L Pulse Rate 69 Respiratory 16 Rate Blood Pressure 144/95 147/85 O2 Sat by Pulse 94 L Oximetry - Reevaluation(s) Reevaluation #1: 09/06/16 22:07 Patient was offered additional medication for his blood pressure did fact that his number was 95 patient states that he will follow-up with his doctor he does not want this. This time she went like to go home. Medical Decision Making - Medical Decision Making 60-year-old male presents to the emergency department with a chief complaint of epistaxis. At this time patient's blood pressure has started to trend down from initial EMS report. This time patient's bleeding has subsided completely even without intervention. At this time we did discuss follow-up with his doctor for possible change in hypertensive medication we did discuss the nasal clamp and he was given Afrin prior to discharge. We discussed return parameters. Patient stated that he understood he does feel comfortable with the plan and all questions have been answered. He will be discharged. Disposition Clinical Impression: Anterior epistaxis Disposition: HOME SELF-CARE Condition: Stable Instructions: Nosebleed (ED) Additional Instructions: Please use medication as discussed. Please follow up with family doctor if symptoms have not improved over the next two days. Please return to the emergency room if your symptoms increase or worsen or for any other concerns. Referrals: Brendan Rowe MD [Primary Care Provider] - 1-2 days Time of Disposition: 22:08
[2016-09-06 21:57] VITALS: BP 147/85
== END 2016-09-06 22:01 | disposition home or self-care (01) ==
LOC: EC 21:25
DX: R04.0 Epistaxis (principal); I10 Essential (primary) hypertension; I25.10 Atherosclerotic heart disease of native coronary artery without angina pectoris; E78.5 Hyperlipidemia, unspecified; E03.9 Hypothyroidism, unspecified; Z79.02 Long term (current) use of antithrombotics/antiplatelets; Z95.5 Presence of coronary angioplasty implant and graft; Z91.011 Allergy to milk products; Z79.82 Long term (current) use of aspirin; Z79.899 Other long term (current) drug therapy
CPT/HCPCS: 99283

== ENCOUNTER → 2016-09-27 | Outpatient (CLI) | payer BC ==
--- NOTE | 2016-09-27 19:07 | US ---
EXAMINATION TYPE: US kidneys/renal and bladder DATE OF EXAM: 09/27/2016 6:22 PM COMPARISON: NONE CLINICAL HISTORY: N18.3 CKD Stage 3. EXAM MEASUREMENTS: Right Kidney: 11.7 x 5.1 x 5.6 cm Left Kidney: 11.5 x 4.8 x 4.6 cm TECHNOLOGIST IMPRESSION: Right Kidney: 11.7 x 5.1 x 5.6cm Left Kidney: 11.5 x 4.8 x 4.6 cm Bladder: wnl Bilateral Jets seen: Yes There is no evidence for hydronephrosis at this point in time. No nephrolithiasis is seen. No rome s are identified. The urinary bladder is anechoic. Bilateral ureteral jets are seen. IMPRESSION: Negative retroperitoneal sonogram exam. No evidence of renal mass or obstruction. No renal atrophy se en.
== END | disposition home or self-care (01) ==
LOC: RADUSMAIN 17:40
PROVIDERS: ATTEND Family Medicine
DX: N18.3 Chronic kidney disease, stage 3 (moderate) (principal)
CPT/HCPCS: 76770

== ENCOUNTER → 2017-07-06 | Outpatient (CLI) | payer BC ==
--- NOTE | 2017-07-06 16:22 | US ---
EXAMINATION TYPE: US kidneys/renal and bladder DATE OF EXAM: 07/06/2017 COMPARISON: NONE CLINICAL HISTORY: N18.13 Chronic Kidney disease stage 3. CKD stage 3. Lower back pain EXAM MEASUREMENTS: Right Kidney: 12.2 x 5.4 x 5.9 cm Left Kidney: 12.0 x 4.8 x 5.2 cm Right Kidney: no evidence of hydronephrosis or mass Left Kidney: no evidence of hydronephrosis or mass Bladder: appears wnl Bilateral Jets seen: yes *Incidental finding: prostate appears prominent with cystic area = 1.1cm Urinary bladder is sonolucent. IMPRESSION: 1. No acute abnormality retroperitoneal kidneys. 2. Incidental note is made of a cyst on the prostate.
== END | disposition home or self-care (01) ==
LOC: RADUSWWP 12:47
PROVIDERS: ATTEND Family Medicine
DX: N18.3 Chronic kidney disease, stage 3 (moderate) (principal)
CPT/HCPCS: 76770

== ENCOUNTER 2017-11-09 23:11 | Emergency (ER) | payer BC ==
[2017-11-09 23:19] VITALS: RESP 18
--- NOTE | 2017-11-10 00:38 | ED ---
Extremity Problem HPI - General Chief complaint: Extremity Problem,Nontraumatic Stated complaint: Knee Pain Time Seen by Provider: 11/09/17 23:37 Source: patient Mode of arrival: ambulatory Limitations: no limitations - History of Present Illness Initial comments: This patient is 61-year-old man who presents with pain to the right popliteal fossa. The patient states that started yesterday earlier in the day, he also noted what he felt was swelling behind his right knee. The patient states that initially it was improved with [id number] . the pain worsened today. He denies any pain into the calf or swelling distal. The patient states that there is some burning pain that radiates toward his foot. 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 Patient denies weakness or numbness. No symptoms proximal to the knee. No chest symptoms. MD Complaint: extremity pain, extremity swelling Onset/Timin -: days(s) Location: right, knee History of Same: No Radiation: distal Quality: burning, aching Consistency: constant Improves with: nothing Worsens with: nothing Associated Symptoms: denies other symptoms - Related Data Home Medications Medication Instructions Recorded Confirmed Clopidogrel [Plavix] 75 mg PO DAILY 08/31/16 11/09/17 Levothyroxine Sodium [Synthroid] 150 mcg PO DAILY 08/31/16 11/09/17 Metoprolol Tartrate [Lopressor] 25 mg PO [facility] 08/31/16 11/09/17 PARoxetine [Paxil] 20 mg PO 08/31/16 11/09/17 Rosuvastatin Calcium [Crestor] 40 mg PO HS 08/31/16 11/09/17 Famotidine [Pepcid] 40 mg PO HS 09/06/16 11/09/17 Aspirin 325 mg PO HS 11/09/17 11/09/17 Cholecalciferol [Vitamin D3] 4,000 unit PO DAILY 11/09/17 11/09/17 Glucosam/Ceasar-Msm1/C/Goran/Bosw 2 tab PO DAILY 11/09/17 11/09/17 [Glucosamine-Chondroitin Tablet] Lisinopril [Prinivil] 10 mg PO BID 11/09/17 11/09/17 Modafinil [Provigil] 100 mg PO DAILY 11/09/17 11/09/17 Multivitamin [Men's Multi-Vitamin] 1 tab PO DAILY 11/09/17 11/09/17 Colstrip-3 Fatty Acids/Fish Oil [Fish 1 cap PO TID 11/09/17 11/09/17 Oil 1,000 mg Softgel] Testosterone Cypionate 200 mg IM Q14D 11/09/17 11/09/17 [Depo-Testosterone] Ubidecarenone [Co Q-10] 300 mg PO DAILY 11/09/17 11/09/17 amLODIPine [Norvasc] 5 mg PO HS 11/09/17 11/09/17 predniSONE See Taper PO DIRECTED 11/09/17 11/09/17 Allergies Allergy/AdvReac Type Severity Reaction Status Date / Time Milk Containing Products Allergy Severe Rash/Hives/ Verified 11/09/17 23:36 [Dairy] Diarrhea Review of Systems ROS Statement: Those systems with pertinent positive or pertinent negative responses have been documented in the HPI. ROS Other: All systems not noted in ROS Statement are negative. Constitutional: Denies: fever, chills, weakness Respiratory: Denies: cough, dyspnea, hemoptysis Cardiovascular: Denies: chest pain, palpitations, dyspnea on exertion, orthopnea , edema, syncope Musculoskeletal: Reports: as per HPI. Denies: back pain Skin: Denies: rash Neurological: Denies: headache, weakness, numbness Past Medical History Past Medical History: Coronary Artery Disease (CAD), Hyperlipidemia, Hypertension, Thyroid Disorder Additional Past Medical History / Comment(s): Tess's dx, hypothyroid, diverticular dx. History of Any Multi-Drug Resistant Organisms: None Reported Past Surgical History: Bowel Resection, Heart Catheterization With Stent Additional Past Surgical History / Comment(s): Total of 5 coronary stents, bowel resection due to diverticular dx-sigmoid colon removed and had colostomy with everntual reversal, colonoscopies, bilateral cataract surgery with lens implants, Past Anesthesia/Blood Transfusion Reactions: No Reported Reaction Additional Past Anesthesia/Blood Transfusion Reaction / Comment(s): Pt does have clausterphobia. Date of Last Stent Placement:: 2012 Past Psychological History: No Psychological Hx Reported Smoking Status: Never smoker Past Alcohol Use History: Occasional Past Drug Use History: None Reported - Past Family History Father History Unknown: Yes Additional Family Medical History / Comment(s): Father yrs ago in a MVA. Mother Family Medical History: Dementia Additional Family Medical History / Comment(s): Mother is 79yrs old and has severe dementia. General Exam Limitations: no limitations General appearance: alert, in no apparent distress, obese Head exam: Present: atraumatic, normocephalic Respiratory exam: Present: normal lung sounds bilaterally. Absent: respiratory distress, wheezes, rales, rhonchi, stridor Cardiovascular Exam: Present: regular rate, normal rhythm, normal heart sounds. Absent: systolic murmur, diastolic murmur, rubs, gallop Extremities exam: Present: normal inspection, tenderness (Right popliteal fossa) , normal capillary refill. Absent: pedal edema, calf tenderness Back exam: Present: normal inspection. Absent: tenderness, CVA tenderness (R), CVA tenderness (L), paraspinal tenderness, vertebral tenderness Neurological exam: Present: alert. Absent: motor sensory deficit Skin exam: Present: warm, dry, intact, normal color. Absent: rash Course Vital Signs 11/09/17 23:16 Temperature 98.0 F Pulse Rate 71 Respiratory 18 Rate Blood Pressure 145/88 O2 Sat by Pulse 96 Oximetry Medical Decision Making - Medical Decision Making This patient is 61-year-old man who presents with pain over the posterior aspect of his right knee. On exam there is no evidence of infection. Patient' s initial workup unremarkable. He did initially refuse analgesic, then asked for something, he stated was not too strong. He did request if this could be given, something to help him rest tonight, and for this reason Valium was added to the ketorolac. Patient sees Dr. Ruff and will follow-up with him. Did discuss appropriate further care and follow-up as well as return parameters. - Lab Data Result diagrams: 11/10/17 00:43 11/10/17 00:43 Lab Results 11/10/17 11/10/17 Range/Units 00:43 00:43 WBC 9.3 (3.8-10.6) k/uL RBC 5.09 (4.30-5.90) m/uL Hgb 14.9 (13.0-17.5) gm/dL Hct 43.3 (39.0-53.0) % MCV 85.0 (80.0-100.0) fL MCH 29.2 (25.0-35.0) pg MCHC 34.4 (31.0-37.0) g/dL RDW 15.1 (11.5-15.5) % Plt Count 157 (150-450) k/uL Neutrophils % 54 % Lymphocytes % 36 % Monocytes % 6 % Eosinophils % 1 % Basophils % 1 % Neutrophils # 5.0 (1.3-7.7) k/uL Lymphocytes # 3.4 (1.0-4.8) k/uL Monocytes # 0.6 (0-1.0) k/uL Eosinophils # 0.1 (0-0.7) k/uL Basophils # 0.1 (0-0.2) k/uL Sodium 141 (137-145) mmol/L Potassium 4.0 (3.5-5.1) mmol/L Chloride 107 (98-107) mmol/L Carbon Dioxide 25 (22-30) mmol/L Anion Gap 9 mmol/L BUN 21 H (9-20) mg/dL Creatinine 1.10 (0.66-1.25) mg/dL Est GFR (CKD-EPI)AfAm 84 (>60 ml/min/1.73 sqM) Est GFR (CKD-EPI)NonAf 73 (>60 ml/min/1.73 sqM) Glucose 94 (74-99) mg/dL Calcium 9.0 (8.4-10.2) mg/dL C-Reactive Protein <5.0 (<10.0) mg/L Disposition Clinical Impression: Arthralgia Disposition: HOME SELF-CARE Condition: Good Instructions: Knee Pain (ED) Referrals: Brendan Rowe MD [Primary Care Provider] - 1-2 days Janak Ruff DO [Doctor of Osteopathic Medicine] - 1-2 days
[2017-11-10 00:52] LABS: Basophils # (A) 0.1 k/uL (0-0.2); Basophils % (A) 1 %; Eosinophils # (A) 0.1 k/uL (0-0.7); Eosinophils % (A) 1 %; HCT 43.3 % (39.0-53.0); HGB 14.9 gm/dL (13.0-17.5); Lymphocytes # (A) 3.4 k/uL (1.0-4.8); Lymphocytes % (A) 36 %; MCH 29.2 pg (25.0-35.0); MCHC 34.4 g/dL (31.0-37.0); Mean Platelet Volume 6.6; Monocytes # (A) 0.6 k/uL (0-1.0); Monocytes % (A) 6 %; Neutrophils % (A) 54 %; Platelet Count 157 k/uL (150-450); RBC 5.09 m/uL (4.30-5.90); RDW 15.1 % (11.5-15.5); WBC 9.3 k/uL (3.8-10.6)
[2017-11-10 01:04] LABS: Anion Gap 9 mmol/L; Blood Urea Nitrogen 21 mg/dL (9-20); C Reactive Protein <5.0 mg/L (<10.0); Carbon Dioxide 25 mmol/L (22-30); Chloride 107 mmol/L (98-107); Glucose 94 mg/dL (74-99); Sodium 141 mmol/L (137-145)
--- NOTE | 2017-11-10 01:13 | US ---
EXAMINATION TYPE: US venous doppler duplex LE RT DATE OF EXAM: 11/10/2017 12:35 AM COMPARISON: NONE CLINICAL HISTORY: Pain, R pop fossa. SIDE PERFORMED: Right TECHNIQUE: The lower extremity deep venous system is examined utilizing real time linear array sonog maria e with graded compression, doppler sonography and color-flow sonography. VESSELS IMAGED: External Iliac Vein (EIV) Common Femoral Vein Deep Femoral Vein Greater Saphenous Vein * Femoral Vein Popliteal Vein Small Saphenous Vein * Proximal Calf Veins (* superficial vessels) Right Leg: Negative for DVT IMPRESSION: Normal exam. No evidence of deep venous thrombosis in the right leg.
[2017-11-10] MEDS ORDERED: DIAZEPAM 5 MG/ML 2 ML INJ IVP STA (01:47)
[2017-11-10] MEDS ORDERED: KETOROLAC 30 MG/ML 1 ML VIAL IVP STA (01:48)
[2017-11-10 01:50] LABS: Erythrocyte Sedimentation Rate 2 mm/hr (0-15)
[2017-11-10 02:04] VITALS: BP 129/78; PULSE 68; TEMP 974
== END 2017-11-10 02:08 | disposition home or self-care (01) ==
LOC: EC 23:11
DX: M25.561 Pain in right knee (principal); M79.89 Other specified soft tissue disorders; I25.10 Atherosclerotic heart disease of native coronary artery without angina pectoris; E78.5 Hyperlipidemia, unspecified; I10 Essential (primary) hypertension; E03.9 Hypothyroidism, unspecified; Z79.01 Long term (current) use of anticoagulants; Z79.82 Long term (current) use of aspirin; Z79.52 Long term (current) use of systemic steroids; Z79.899 Other long term (current) drug therapy; Z91.011 Allergy to milk products
CPT/HCPCS: 36415; 80048; 85652; 85025; 86140; 93971; 99284; 96374; 96375; J3360; J1885

== ENCOUNTER → 2018-02-26 | Outpatient (CLI) | payer BC ==
--- NOTE | 2018-02-26 19:44 | CONS ---
CONSULTATION REASON FOR CONSULTATION: Sleep apnea. This is a 62-year-old male patient diagnosed having obstructive sleep apnea through a sleep center in [facility]. This was established many years back. Subsequent the patient had another sleep study at [facility] in [place] and the patient was given a CPAP unit which is a ResMed S9 Series set at a pressure of 10 cm of water. His starting pressure is at 5 in and he has 5 minutes of RAMP time with an EPR of 3. He is utilizing a nose mask. The patient is coming in for further advice. Recently he has been noted to have increased snoring even while on the CPAP. He has chronic nasal congestion and he has had various treatments, including nasal corticosteroids and antihistamine treatments in the past without much benefit. He is interested in undergoing an ENT evaluation and an allergy evaluation with Dr. Salgado. Meanwhile, I noted that the patient's CPAP machine is being utilized without a humidification chamber and he does have regular tubing that could be another cause of non-allergic chronic rhinitis in this patient. The patient is currently interested in making adjustments on his CPAP machine. He is also interested in a new mask interface. I checked the compliance data on his machine, and the patient is averaging around 6.7 hours of CPAP use every night. He has gained weight over the years which has been estimated on the order of 20 to 25 pounds since his original diagnosis of obstructive sleep apnea. PAST MEDICAL HISTORY: 1. Obstructive sleep apnea, details as discussed above. Original PSG is not available. Currently he is on CPAP pressure of 10. 2. Obesity. 3. Hyperlipidemia. 4. Coronary artery disease with previous myocardial infarction. The patient has undergone stenting x2. 5. History of Tess's thyroiditis. 6. Hypertension. 7. Degenerative arthritis. PAST SURGICAL HISTORY: 1. Previous knee surgery. 2. History of complicated diverticulitis. The patient underwent bowel surgery/colectomy with diverting colostomy with subsequent reversal. 3. Cardiac catheterization with insertion of coronary stents. 4. Cataract surgery. DRUG ALLERGIES: NOT KNOWN. He is allergic to DAIRY. OUTPATIENT MEDICATION LIST: 1. Metoprolol 25 mg p.o. daily. 2. Levothyroxine 150 mcg p.o. daily. 3. Plavix 75 mg p.o. daily. 4. Lisinopril 10 mg p.o. daily. 5. Provigil 200 mg p.o. daily. 6. Crestor 40 mg p.o. daily. 7. Paxil 20 mg p.o. daily. 8. Amlodipine 5 mg p.o. daily. 9. Pepcid 20 mg p.o. twice a day. 10.Fish oil. 11.Coenzyme Q. 12.Vitamin D3. 13.Glucosamine/chondroitin. SOCIAL HISTORY: No history of alcoholism. No history of IV drugs. He is an ex-smoker. FAMILY HISTORY: Negative for sleep apnea. REVIEW OF SYSTEMS: Twelve-point review of systems was done. He is having snoring while on the CPAP machine. No insomnia. No choking or gasping for air. No nocturia. No grinding of the teeth. No sleepwalking. No anxiety or panic attacks. No palpitation. No heartburn. No sweating. No claustrophobia. No sexual dysfunction. No history of depression. He goes to bed around 10:30 p.m., wakes up at 5 a.m. in the morning, averaging around 6 to 7 hours of sleep every night. PHYSICAL EXAMINATION: BP is 122/78, pulse 66, respirations 16, temperature 98.1, saturation 97% on room air. Weight is 262. Height is 5 feet 9 inches. Neck size 18-1/4 inches. BMI is 38.1. GENERAL APPEARANCE: Calm, comfortable. Head is atraumatic, normocephalic. Neck is short, supple. Crowding of posterior pharynx. There is no goiter or neck masses. LUNGS: Diminished breath sounds bilaterally; otherwise clear. Heart sounds are regular rate and rhythm. Normal S1, S2. No S3, S4. No murmurs. ABDOMEN: Soft, nontender. No organomegaly. EXTREMITIES: No edema. No cyanosis or clubbing. NEUROLOGIC: Alert and oriented x3. No focal neurological deficits. PSYCHIATRIC: Negative for anxiety or depression. IMPRESSION: 1. Obstructive sleep apnea. Diagnosis established more than 10 years ago. Currently on CPAP with a ResMed S9 Series at the pressure of 10 cm of water, averaging around 6.7 hours of CPAP use. 2. Snoring while on the CPAP, potentially indicating suboptimal treatment. 3. Obesity with interval weight gain since original diagnosis. Current BMI is 38.1. 4. Chronic rhinitis, possibly non-allergic in nature; could be related to excessive dryness from the CPAP machine, knowing that the patient is not using any humidification or climate control. 5. Hyperlipidemia. 6. Coronary artery disease with previous coronary stenting. 7. Tess's thyroiditis. 8. Hypertension. 9. Degenerative arthritis. PLAN: 1. Will increase the CPAP pressure up to 12 cm of water. 2. I provided this patient with an AirFit N20 nose mask, medium size, and this gave the patient a good seal. The mask was trialed here in the sleep center and he was able to tolerate the treatment well, and this will be ordered for him. 3. Will add heated humidity. The patient will be given heated tubing, and his humidification will be reactivated through his ResMed S9 Series. 4. Encourage weight loss. 5. Evaluate head and neck by Dr. Salgado and consider an allergy evaluation. 6. Will continue to follow. If the above-mentioned adjustments fail, will consider repeating the CPAP titration. MMVIVIANL / IJN: [id number] /
== END ==
LOC: SLEEP 15:15
PROVIDERS: ATTEND Internal Medicine Critical Care Medicine
DX: G47.33 Obstructive sleep apnea (adult) (pediatric) (principal); E66.9 Obesity, unspecified; J31.0 Chronic rhinitis; E78.5 Hyperlipidemia, unspecified; M19.90 Unspecified osteoarthritis, unspecified site; I25.10 Atherosclerotic heart disease of native coronary artery without angina pectoris; E06.3 Autoimmune thyroiditis; I10 Essential (primary) hypertension; Z68.38 Body mass index [BMI] 38.0-38.9, adult; Z99.89 Dependence on other enabling machines and devices; Z95.5 Presence of coronary angioplasty implant and graft; Z91.011 Allergy to milk products; Z79.82 Long term (current) use of aspirin; Z79.899 Other long term (current) drug therapy; Z87.891 Personal history of nicotine dependence
CPT/HCPCS: 99211

== ENCOUNTER → 2018-12-03 | Outpatient (CLI) | payer BC ==
--- NOTE | 2018-12-03 12:15 | US ---
EXAMINATION TYPE: US venous doppler duplex LE LT DATE OF EXAM: 12/03/2018 12:02 PM COMPARISON: NONE CLINICAL HISTORY: R22.42 swelling of left lower leg. SIDE PERFORMED: Left TECHNIQUE: The lower extremity deep venous system is examined utilizing real time linear array sonog maria e with graded compression, doppler sonography and color-flow sonography. VESSELS IMAGED: External Iliac Vein (EIV) Common Femoral Vein Deep Femoral Vein Greater Saphenous Vein * Femoral Vein Popliteal Vein Small Saphenous Vein * Proximal Calf Veins (* superficial vessels) Grayscale, color doppler, spectral doppler imaging performed of the deep veins of the left lower extr emity. There is normal flow, compressibility, vascular waveforms. Left Leg: Negative for DVT IMPRESSION: No sonographic evidence of deep venous thrombosis within the left lower extremity.
== END | disposition home or self-care (01) ==
LOC: RADUSWWP 11:32
PROVIDERS: ATTEND Family Medicine
DX: M79.89 Other specified soft tissue disorders (principal)

== ENCOUNTER → 2019-01-03 | Outpatient (CLI) | payer BC ==
[2019-01-03 15:08] LABS: Anisocytosis Slight; Basophils # (A) 0.1 k/uL (0-0.2); Basophils % (A) 1 %; Eosinophils # (A) 0.1 k/uL (0-0.7); Eosinophils % (A) 2 %; HCT 47.1 % (39.0-53.0); HGB 15.6 gm/dL (13.0-17.5); Lymphocytes # (A) 1.8 k/uL (1.0-4.8); Lymphocytes % (A) 27 %; MCH 28.5 pg (25.0-35.0); MCHC 33.1 g/dL (31.0-37.0); MCV 85.9 fL (80.0-100.0); Mean Platelet Volume 7.4; Monocytes # (A) 0.5 k/uL (0-1.0); Monocytes % (A) 7 %; Neutrophils % (A) 60 %; Platelet Count 166 k/uL (150-450); RBC 5.48 m/uL (4.30-5.90); RDW 16.4 % (11.5-15.5); WBC 6.6 k/uL (3.8-10.6)
[2019-01-03 15:10] LABS: Appearance,Urine Clear (Clear); Bilirubin,Urine Negative (Negative); Blood,Urine Negative (Negative); Color,Urine Light Yellow; Glucose,Urine (UA) Negative (Negative); Ketones,Urine Negative (Negative); Leukocyte Esterase,Urine Negative (Negative); Nitrite,Urine Negative (Negative); Protein,Urine Trace (Negative); Specific Gravity,Urine 1.016 (1.001-1.035); Urobilinogen,Urine <2.0 mg/dL (<2.0)
[2019-01-03 17:28] LABS: Erythrocyte Sedimentation Rate 2 mm/hr (0-15)
[2019-01-03 23:11] LABS: Rheumatoid Factor <4 IU/mL (0-15); Streptolysin O Ab(ASO) 34 IU/mL (0-200); Vitamin D 25 Hydroxy 49.5 ng/mL (30.0-100.0)
[2019-01-04 00:33] LABS: Parathyroid Hormone Intact 79.3 pg/mL (14.0-72.0)
[2019-01-04 00:46] LABS: ALT 30 U/L (10-49); AST 38 U/L (14-35); Alkaline Phosphatase 36 U/L (41-126); C Reactive Protein <0.4 mg/dL (0.0-0.8); Calcium 9.1 mg/dL (8.7-10.3); Carbon Dioxide 26.7 mmol/L (21.6-31.8); Chloride 106 mmol/L (96-109); Creatine Kinase 186 U/L (35-257); Globulin 1.5 g/dL (1.6-3.3); Glucose 80 mg/dL (70-110); LDH 209 U/L (120-246); Phosphorus 4.1 mg/dL (2.4-5.1); Potassium 4.1 mmol/L (3.5-5.5); Sodium 142 mmol/L (135-145); Total Bilirubin 0.7 mg/dL (0.3-1.2)
[2019-01-04 00:47] LABS: Hemoglobin A1C 5.9 % (4.0-6.0)
[2019-01-04 13:58] LABS: Angiotensin-1 Converting Enz. 14 U/L (8-52)
[2019-01-06 12:00] LABS: HLA B27 NEGATIVE
[2019-01-06 13:00] LABS: Albumin 3.94 g/dL (3.80-4.90); Gamma Globulin 0.56 g/dL (0.70-1.50)
[2019-01-06 15:20] LABS: Hepatits C Virus RNA Not detected (Not detected); Hepatits C Virus RNA, Quant <12 IU/mL (<12); LOG HCV IU/mL <1.08 (<1.08)
[2019-01-06 19:03] LABS: Vitamin D, 1, 25-Dihydroxy 51 pg/mL (20 - 79)
[2019-01-07 13:01] LABS: Lyme IgG/IgM 0.03 Index
[2019-01-08 08:16] LABS: Vit B1(Thiamine) 84 ug/L (38-122)
== END | disposition home or self-care (01) ==
LOC: LABWHC1 14:26
PROVIDERS: ATTEND Physical Medicine & Rehabilitation
DX: G89.4 Chronic pain syndrome (principal); R53.82 Chronic fatigue, unspecified
CPT/HCPCS: 36415; 80053; 81003; 82164; 82248; 82306; 82310; 82533; 82550; 82553; 82607; 82652; 83036; 83516; 83615; 83970; 84100; 84165; 84207; 84402; 84403; 84425; 84439; 84443; 84550; 85025; 85652; 86038; 86060; 86140; 86200; 86235; 86431; 86618; 86812; 87522

== ENCOUNTER 2019-08-19 12:17 | Observation (INO) | payer BC ==
--- NOTE | 2019-08-19 12:45 | ED ---
General Adult HPI - General Chief complaint: Recheck/Abnormal Lab/Rx Stated complaint: lt arm pain Time Seen by Provider: 08/19/19 12:28 Source: patient, RN notes reviewed, old records reviewed Mode of arrival: wheelchair Limitations: no limitations - History of Present Illness Initial comments: 63-year-old male presented for evaluation of left arm pain. Patient states he's had pain for approximately one week in the left arm. Worse with movement. P redominantly in his bicep. Denies injury. He states that he has dealt with some intermittent pain for many years. He is told he has some osteoarthritis. Patient's main concern today is that his left arm pain may be related to his heart. He said to previous heart attacks. His most recent heart attack which resulted in stent placement presented with on the right arm pain, no chest pain, no dyspnea. Today the patient denies any chest pain, dyspnea, diaphoresis. He is not lightheaded. No cough. No fever. - Related Data Home Medications Medication Instructions Recorded Confirmed Clopidogrel [Plavix] 75 mg PO DAILY 08/31/16 11/09/17 Levothyroxine Sodium [Synthroid] 150 mcg PO DAILY 08/31/16 11/09/17 Metoprolol Tartrate [Lopressor] 25 mg PO QAM 08/31/16 11/09/17 Rosuvastatin Calcium [Crestor] 40 mg PO HS 08/31/16 11/09/17 Famotidine [Pepcid] 40 mg PO DAILY PRN 09/06/16 11/09/17 Cholecalciferol [Vitamin D3] 4,000 unit PO DAILY 11/09/17 11/09/17 Lisinopril [Prinivil] 10 mg PO BID 11/09/17 11/09/17 [place]-3 Fatty Acids/Fish Oil [Fish 1 cap PO TID 11/09/17 11/09/17 Oil 1,000 mg Softgel] Testosterone Cypionate 200 mg IM MO 11/09/17 11/09/17 [Depo-Testosterone] Ubidecarenone [Co Q-10] 300 mg PO DAILY 11/09/17 11/09/17 amLODIPine [Norvasc] 5 mg PO DAILY 11/09/17 11/09/17 Aspirin EC [Ecotrin Low Dose] 324 mg PO DAILY 08/19/19 08/19/19 Modafinil [Provigil] 200 mg PO DAILY 08/19/19 08/19/19 Allergies Allergy/AdvReac Type Severity Reaction Status Date / Time Milk Containing Products Allergy Severe Rash/Hives/ Verified 08/19/19 14:26 [Dairy] Diarrhea Review of Systems ROS Statement: Those systems with pertinent positive or pertinent negative responses have been documented in the HPI. ROS Other: All systems not noted in ROS Statement are negative. Past Medical History Past Medical History: Coronary Artery Disease (CAD), Hyperlipidemia, Hypertension, Thyroid Disorder Additional Past Medical History / Comment(s): Tess's dx, hypothyroid, diverticular dx. History of Any Multi-Drug Resistant Organisms: None Reported Past Surgical History: Bowel Resection, Heart Catheterization With Stent Additional Past Surgical History / Comment(s): Total of 5 coronary stents, bowel resection due to diverticular dx-sigmoid colon removed and had colostomy with everntual reversal, colonoscopies, bilateral cataract surgery with lens implants, Past Anesthesia/Blood Transfusion Reactions: No Reported Reaction Additional Past Anesthesia/Blood Transfusion Reaction / Comment(s): Pt does have clausterphobia. Date of Last Stent Placement:: 2012 Past Psychological History: No Psychological Hx Reported Smoking Status: Never smoker Past Alcohol Use History: Occasional Past Drug Use History: None Reported - Past Family History Father History Unknown: Yes Additional Family Medical History / Comment(s): Father yrs ago in a MVA. Mother Family Medical History: Dementia Additional Family Medical History / Comment(s): Mother is 79yrs old and has severe dementia. General Exam Limitations: no limitations General appearance: alert, in no apparent distress Head exam: Present: atraumatic, normocephalic Eye exam: Present: normal appearance, PERRL ENT exam: Present: normal exam Neck exam: Present: normal inspection. Absent: tenderness, meningismus Respiratory exam: Present: normal lung sounds bilaterally. Absent: respiratory distress, wheezes Cardiovascular Exam: Present: regular rate, normal rhythm GI/Abdominal exam: Present: soft. Absent: distended, tenderness, guarding, rebound Extremities exam: Present: normal inspection, full ROM, tenderness (tenderness in the right bicep with range of motion), normal capillary refill, other (distal pulses intact, 2+ radial) Back exam: Present: normal inspection, full ROM Neurological exam: Present: alert, oriented X3, CN II-XII intact. Absent: motor sensory deficit Psychiatric exam: Present: normal affect, normal mood Skin exam: Present: warm, dry, intact. Absent: cyanosis, diaphoretic Course Vital Signs 08/19/19 12:21 Temperature 97.9 F Pulse Rate 77 Respiratory 18 Rate Blood Pressure 152/90 O2 Sat by Pulse 96 Oximetry EKG Findings - EKG Comments: EKG Findings:: EKG: Sinus bradycardia with first-degree AV block, ventricular rate 56, MS interval 262 QRS98, QTC 45, no ST segment elevation, T-wave inv ersion in the lead 3. Medical Decision Making - Medical Decision Making 63-year-old male history of CAD presenting with left arm pain. EKG is sinus bradycardia with no ST segment elevation. He has chest x-ray negative for acute Agustin palmar disease. Normal CBC, normal CMP, initial troponin is negative. Given the patient's previous cardiac history and previous presentation with only arm pain he will be placed in observation for stroke or headache enzymes, telemetry, endocrinology consultation. Case discussed with the admitting physician Dr. Eisenberg. - Lab Data Result diagrams: 08/19/19 12:40 08/19/19 12:40 Lab Results 08/19/19 08/19/19 08/19/19 Range/Units 12:40 12:40 12:40 WBC 5.2 (3.8-10.6) k/uL RBC 4.82 (4.30-5.90) m/uL Hgb 14.7 (13.0-17.5) gm/dL Hct 42.2 (39.0-53.0) % MCV 87.5 (80.0-100.0) fL MCH 30.5 (25.0-35.0) pg MCHC 34.9 (31.0-37.0) g/dL RDW 13.6 (11.5-15.5) % Plt Count 180 (150-450) k/uL Neutrophils % 54 % Lymphocytes % 34 % Monocytes % 7 % Eosinophils % 2 % Basophils % 1 % Neutrophils # 2.8 (1.3-7.7) k/uL Lymphocytes # 1.8 (1.0-4.8) k/uL Monocytes # 0.3 (0-1.0) k/uL Eosinophils # 0.1 (0-0.7) k/uL Basophils # 0.0 (0-0.2) k/uL PT 10.7 (9.0-12.0) sec INR 1.0 (<1.2) APTT 22.6 (22.0-30.0) sec Sodium 140 (137-145) mmol/L Potassium 4.6 (3.5-5.1) mmol/L Chloride 110 H (98-107) mmol/L Carbon Dioxide 21 L (22-30) mmol/L Anion Gap 9 mmol/L BUN 12 (9-20) mg/dL Creatinine 1.14 (0.66-1.25) mg/dL Est GFR (CKD-EPI)AfAm 80 (>60 ml/min/1.73 sqM) Est GFR (CKD-EPI)NonAf 69 (>60 ml/min/1.73 sqM) Glucose 97 (74-99) mg/dL Calcium 9.1 (8.4-10.2) mg/dL Magnesium 2.0 (1.6-2.3) mg/dL Total Bilirubin 0.7 (0.2-1.3) mg/dL AST 36 (17-59) U/L ALT 23 (4-49) U/L Alkaline Phosphatase 39 (38-126) U/L Troponin I (0.000-0.034) ng/mL Total Protein 6.6 (6.3-8.2) g/dL Albumin 4.3 (3.5-5.0) g/dL 08/19/19 Range/Units 12:40 WBC (3.8-10.6) k/uL RBC (4.30-5.90) m/uL Hgb (13.0-17.5) gm/dL Hct (39.0-53.0) % MCV (80.0-100.0) fL MCH (25.0-35.0) pg MCHC (31.0-37.0) g/dL RDW (11.5-15.5) % Plt Count (150-450) k/uL Neutrophils % % Lymphocytes % % Monocytes % % Eosinophils % % Basophils % % Neutrophils # (1.3-7.7) k/uL Lymphocytes # (1.0-4.8) k/uL Monocytes # (0-1.0) k/uL Eosinophils # (0-0.7) k/uL Basophils # (0-0.2) k/uL PT (9.0-12.0) sec INR (<1.2) APTT (22.0-30.0) sec Sodium (137-145) mmol/L Potassium (3.5-5.1) mmol/L Chloride (98-107) mmol/L Carbon Dioxide (22-30) mmol/L Anion Gap mmol/L BUN (9-20) mg/dL Creatinine (0.66-1.25) mg/dL Est GFR (CKD-EPI)AfAm (>60 ml/min/1.73 sqM) Est GFR (CKD-EPI)NonAf (>60 ml/min/1.73 sqM) Glucose (74-99) mg/dL Calcium (8.4-10.2) mg/dL Magnesium (1.6-2.3) mg/dL Total Bilirubin (0.2-1.3) mg/dL AST (17-59) U/L ALT (4-49) U/L Alkaline Phosphatase (38-126) U/L Troponin I <0.012 (0.000-0.034) ng/mL Total Protein (6.3-8.2) g/dL Albumin (3.5-5.0) g/dL Disposition Clinical Impression: History of coronary artery disease, Chest pain Disposition: ADMITTED IP TO THIS HOSP Condition: Stable Is patient prescribed a controlled substance at d/c from ED?: No Referrals: Brendan Rowe MD [Primary Care Provider] - 1-2 days Decision to Admit Reason: Admit from EC Decision Date: 08/19/19 Decision Time: 14:33
--- NOTE | 2019-08-19 12:59 | XR ---
EXAMINATION TYPE: XR chest 2V DATE OF EXAM: 08/19/2019 COMPARISON: Chest x-ray August 31, 2016. HISTORY: Chest pain into left upper arm for 3 days. TECHNIQUE: Frontal and lateral views of the chest are obtained. FINDINGS: There is no focal air space opacity, pleural effusion, or pneumothorax seen. The cardiac silhouette size is within normal limits. The osseous structures are intact. IMPRESSION: No suspicious acute process. No significant change from prior.
[2019-08-19 13:07] LABS: Basophils % (A) 1 %; Eosinophils # (A) 0.1 k/uL (0-0.7); Eosinophils % (A) 2 %; HCT 42.2 % (39.0-53.0); HGB 14.7 gm/dL (13.0-17.5); Lymphocytes # (A) 1.8 k/uL (1.0-4.8); Lymphocytes % (A) 34 %; MCH 30.5 pg (25.0-35.0); MCHC 34.9 g/dL (31.0-37.0); MCV 87.5 fL (80.0-100.0); Mean Platelet Volume 7.2; Monocytes # (A) 0.3 k/uL (0-1.0); Monocytes % (A) 7 %; Neutrophils # (A) 2.8 k/uL (1.3-7.7); Neutrophils % (A) 54 %; Platelet Count 180 k/uL (150-450); RBC 4.82 m/uL (4.30-5.90); RDW 13.6 % (11.5-15.5); WBC 5.2 k/uL (3.8-10.6)
[2019-08-19 13:08] LABS: Prothrombin Time 10.7 sec (9.0-12.0)
[2019-08-19 13:09] LABS: Partial Thromboplastin Time 22.6 sec (22.0-30.0)
[2019-08-19 13:10] LABS: Albumin 4.3 g/dL (3.5-5.0); Calcium 9.1 mg/dL (8.4-10.2); Potassium 4.6 mmol/L (3.5-5.1); Total Bilirubin 0.7 mg/dL (0.2-1.3); Total Protein 6.6 g/dL (6.3-8.2)
[2019-08-19] MEDS ORDERED: IBUPROFEN 400 MG TAB PO PRN (14:28)
[2019-08-19] MEDS ORDERED: HYDROmorphone 0.5 MG/0.5 ML SYRINGE IVP PRN (14:28)
[2019-08-19] MEDS ORDERED: NALOXONE 0.4 MG/ML 1 ML VIAL IV PRN (14:28)
[2019-08-19] MEDS ORDERED: NITROGLYCERIN SL TABS 0.4 MG TAB SUBLINGUAL PRN (14:31)
[2019-08-19] MEDS ORDERED: ASPIRIN 325 MG TAB PO STA (14:31)
[2019-08-19 15:12] VITALS: RESP 18
[2019-08-19] MEDS ORDERED: FAMOTIDINE 20 MG TAB PO PRN (15:27)
--- NOTE | 2019-08-19 15:31 | P.HPIM ---
History of Present Illness H&P Date: 08/19/19 Chief Complaint: left arm pain the patient is a 63-year-old morbidly obese male with a past medical history of chronic kidney disease, essential hypertension, coronary artery disease with stenting 5, history of NV, hyperlipidemia, hypothyroidism secondary to Tess's thyroiditis who presents to the ER with chief complaint of left arm pain. 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 The patient reports concern because on both times were A had his MRIs he presented either with right arm pain and pain in his neck. The patient denies any chest pain, denies associated nausea vomiting, diaphoresis or shortness of breath. The patient reports chronic pain in multiple areas including his hands and knees and toes, he reports seeing an environmental engineering intern and reports that he has also been worked up for autoimmune disorders. the patient reports Dr. Kwon has his cardiologiststated that he had echocardiogram approximately 7-8 months ago. the patient denies any lightheadedness, presyncope, focal weakness and slurred speech. he also denies any palpitations lower extremity swelling or paroxysmal nocturnal dyspnea. ER the patient had a comprehensive workup, EKG suggested sinus bradycardia with a first-degree AV block. troponin was negative at less than 0.012. chest x-ray showed no suspicious acute processchanges from the past. The patient was recommended to be placed on observation status from the ER Review of Systems pertinent positives per HPI all other review of systems are negative except per HPI Past Medical History Past Medical History: Coronary Artery Disease (CAD), Hyperlipidemia, Hypertension, Thyroid Disorder Additional Past Medical History / Comment(s): Tess's dx, hypothyroid, diverticular dx. History of Any Multi-Drug Resistant Organisms: None Reported Past Surgical History: Bowel Resection, Heart Catheterization With Stent Additional Past Surgical History / Comment(s): Total of 5 coronary stents, bowel resection due to diverticular dx-sigmoid colon removed and had colostomy with everntual reversal, colonoscopies, bilateral cataract surgery with lens implants, Past Anesthesia/Blood Transfusion Reactions: No Reported Reaction Additional Past Anesthesia/Blood Transfusion Reaction / Comment(s): Pt does have clausterphobia. Date of Last Stent Placement:: 2012 Past Psychological History: No Psychological Hx Reported Smoking Status: Never smoker Past Alcohol Use History: Occasional Past Drug Use History: None Reported - Past Family History Father History Unknown: Yes Additional Family Medical History / Comment(s): Father yrs ago in a MVA. Mother Family Medical History: Dementia Additional Family Medical History / Comment(s): Mother is 79yrs old and has severe dementia. Medications and Allergies Home Medications Medication Instructions Recorded Confirmed Type Clopidogrel [Plavix] 75 mg PO DAILY 08/31/16 08/19/19 History Levothyroxine Sodium [Synthroid] 150 mcg PO DAILY 08/31/16 08/19/19 History Metoprolol Tartrate [Lopressor] 25 mg PO QAM 08/31/16 08/19/19 History Rosuvastatin Calcium [Crestor] 40 mg PO HS 08/31/16 08/19/19 History Famotidine [Pepcid] 40 mg PO DAILY PRN 09/06/16 08/19/19 History Cholecalciferol [Vitamin D3] 4,000 unit PO DAILY 11/09/17 08/19/19 History Lisinopril [Prinivil] 10 mg PO BID 11/09/17 08/19/19 History [place]-3 Fatty Acids/Fish Oil [Fish 1 cap PO TID 11/09/17 08/19/19 History Oil 1,000 mg Softgel] Testosterone Cypionate 200 mg IM MO 11/09/17 08/19/19 History [Depo-Testosterone] Ubidecarenone [Co Q-10] 300 mg PO DAILY 11/09/17 08/19/19 History amLODIPine [Norvasc] 5 mg PO DAILY 11/09/17 08/19/19 History Amitriptyline HCl [Elavil] 10 mg PO HS 08/19/19 08/19/19 History Aspirin EC [Ecotrin Low Dose] 324 mg PO DAILY 08/19/19 08/19/19 History DULoxetine HCL [Cymbalta] 30 mg PO DAILY 08/19/19 08/19/19 History Modafinil [Provigil] 200 mg PO DAILY 08/19/19 08/19/19 History Allergies Allergy/AdvReac Type Severity Reaction Status Date / Time Milk Containing Products Allergy Severe Rash/Hives/ Verified 08/19/19 14:26 [Dairy] Diarrhea Physical Exam Vitals: Vital Signs Temp Pulse Resp BP Pulse Ox 08/19/19 14:44 76 16 147/85 99 08/19/19 12:21 97.9 F 77 18 152/90 96 Intake and Output 08/19/19 08/19/19 08/19/19 06:59 14:59 22:59 Other: Weight 110.677 kg Constitutional: No acute distress, conversant, pleasant Eyes: Anicteric sclerae, moist conjunctiva, no lid-lag, PERRLA ENMT: NC/AT,Oropharynx clear, no erythema, exudates Neck:Supple, FROM, no masses, or JVD, No carotid bruits; No thyromegaly Lungs: Clear to auscultation, Clear to percussion, Normal respiratory effort, no accessory muscle use Cardiovascular: Heart regular in rate and rhythm, No murmurs, gallops, or rubs no peripheral edema Abdominal: Soft Nontender, nom distended, no guarding, no rebound or rigidity, Normoactive bowel sounds No hepatomegaly, No splenomegaly, No palpable mass No abdominal wall hernia noted Skin: Normal temperature, tone, texture, turgor, No induration No subcutaneous nodules, No rash, lesions, No ulcers Extremities:No digital cyanosis No clubbing, Pedal pulses intact and symmetrical Radial pulses intact and symmetrical Normal gait and station, No calf tenderness Psychiatric: Alert and oriented to person, place and time, Appropriate affect Intact judgement Neuro: Muscles Strength 5/5 in all 4 extremities, Sensation to light touch grossly present throughout, Cranial nerves II-XII grossly intact. No focal senso ry deficits Results CBC & Chem 7: 08/19/19 12:40 08/19/19 12:40 Labs: Abnormal Lab Results - Last 24 Hours (Table) 08/19/19 Range/Units 12:40 Chloride 110 H (98-107) mmol/L Carbon Dioxide 21 L (22-30) mmol/L Assessment and Plan Assessment: anginal equivalent Left arm pain Essential hypertension CAD with stenting hyperlipidemia Tess's thyroiditis Plan: the patient observation anticipated less than 2 midnight stay with need to rule out ACS after presented with left arm/bicep pain with concern of it being an anginal equivalent. Initial workup with EKG, shows sinus bradycardia without any sedation of acute ischemia, troponin was negative a less than 0.012. We'll plan to cycle his troponins every 6 hours, check TSH, lipid panel, consult cardiology. Continue routine chest pain orders. The patient's blood pressure is noted to be elevated we'll resume his home regimen and continue to follow his clinical course CODE STATUS: Full code Anticipated discharge: 1-[address]: Home Prophylaxis: SCDs and heparin
[2019-08-19] MEDS ORDERED: ACETAMINOPHEN TAB 325 MG TAB PO PRN (16:21)
[2019-08-19] MEDS: NON FORMULARY DRUG (Omega-3 Fatty Acids/Fish Oil [Fish Oil 1,000 Mg Softgel] 1 CAP) PO SCH ×2 (16:44→23:27)
[2019-08-19] MEDS: HEPARIN SODIUM,PORCINE 5,000 UNIT/ML 1 ML VIAL SQ SCH (20:30)
[2019-08-19] MEDS: LISINOPRIL 10 MG TAB PO SCH (20:31)
[2019-08-19] MEDS ORDERED: AMITRIPTYLINE HCL 10 MG TAB PO SCH (21:00)
[2019-08-19] MEDS ORDERED: ATORVASTATIN 80 MG TAB PO SCH (21:00)
[2019-08-20] MEDS ORDERED: LEVOTHYROXINE 75 MCG TAB PO SCH (06:30)
[2019-08-20 07:01] LABS: Cholesterol 106 mg/dL (<200); HDL Cholesterol 26 mg/dL (40-60); LDL Cholesterol,Calculated 53 mg/dL (0-99); Triglycerides 133 mg/dL (<150)
[2019-08-20 07:38] VITALS: BP 124/80; PULSE 52; TEMP 97.5
--- NOTE | 2019-08-20 08:02 | P.CRDCN ---
History of Present Illness Consult date: 08/20/19 Requesting physician: Praveen Eisenberg Reason for Consult (text): chest pain Chief complaint: left bicep pain History of present illness: This is a pleasant 64-year-old gentleman who follows with Dr. KARLY Kwon in the office. He does follow regularly and had an echocardiogram done earlier this year which according to the patient showed some improvement in his heart function and his most recent stress test was within the last 2 years. He has a known history of previous cardiac stenting with this first stent at the age of 47 and most recently in 2012 in the setting of an FL underwent stenting of the LAD and attempted angioplasty and stenting of the RCA which was unsuccessful with collaterals noted at that time according to the patient. The symptoms he experienced with his FL were right neck, shoulder and arm pain with palpitations and diaphoresis. Patient also has a history of hypertension, Tess's, and metabolic syndrome. He suffers from chronic diffuse joint pain that has signi ficantly worsened over the last 6 months and he follows with her canine service instructor trainer. The patient verbalizes that he is very active and has been watching his diet closely and has lost about 40 pounds in the last 2 months. He presented to the emergency department with complaints of intermittent left bicep pain that had been occurring on and off over the last 3 days. The pain seems to be random and is not reproducible however the patient recently completed apparently he was building and has been doing some intense physical labor. The patient was concerned due to the right arm pain he experienced with his FL which prompted him to present to the emergency department. This pain however was localized in his left bicep with no associated symptoms. He did not have his nitroglycerin on him and therefore did not take it but is also leery about taking nitroglycerin due to a drop in blood pressure. EKG on arrival showed sinus bradycardia with no ST-T wave changes indicative of ischemia. Chest x-ray showed no acute process. Troponin levels have been negative 3. Laboratory values show normal CBC, potassium 4.6, BUN 12, creatinine 1.14 and magnesium 2.0. LDL is well controlled. His vital signs have been stable he was noted to have bradycardia with heart rates in the 30s during sleep which according to the patient is normal for him. Upon examination, patient is resting comfortably in bed. Complains of diffuse joint stiffness and pain but no current complaints of left bicep pain. Past Medical History Past Medical History: Coronary Artery Disease (CAD), Hyperlipidemia, Hypertension, Thyroid Disorder Additional Past Medical History / Comment(s): Tess's dx, hypothyroid, diverticular dx. Last Myocardial Infarction Date:: 2012 History of Any Multi-Drug Resistant Organisms: None Reported Past Surgical History: Bowel Resection, Heart Catheterization With Stent Additional Past Surgical History / Comment(s): Total of 5 coronary stents, bowel resection due to diverticular dx-sigmoid colon removed and had colostomy with everntual reversal, colonoscopies, bilateral cataract surgery with lens implants, Past Anesthesia/Blood Transfusion Reactions: No Reported Reaction Additional Past Anesthesia/Blood Transfusion Reaction / Comment(s): Pt does have clausterphobia. Date of Last Stent Placement:: 2012 Past Psychological History: No Psychological Hx Reported Smoking Status: Never smoker Past Alcohol Use History: Occasional Past Drug Use History: None Reported - Past Family History Father History Unknown: Yes Family Medical History: Hyperlipidemia, Thyroid Disorder Additional Family Medical History / Comment(s): Father yrs ago in a MVA. Mother Family Medical History: Dementia Additional Family Medical History / Comment(s): Mother is 79yrs old and has severe dementia. Sister(s) Family Medical History: Cancer, Diabetes Mellitus, Hyperlipidemia, Thyroid Disorder Additional Family Medical History / Comment(s): breast cancer Brother(s) Family Medical History: Deep Vein Thrombosis (DVT), Hyperlipidemia, Thyroid Disorder Medications and Allergies Home Medications Medication Instructions Recorded Confirmed Type Clopidogrel [Plavix] 75 mg PO DAILY 08/31/16 08/19/19 History Levothyroxine Sodium [Synthroid] 150 mcg PO DAILY 08/31/16 08/19/19 History Metoprolol Tartrate [Lopressor] 25 mg PO QAM 08/31/16 08/19/19 History Rosuvastatin Calcium [Crestor] 40 mg PO HS 08/31/16 08/19/19 History Famotidine [Pepcid] 40 mg PO DAILY PRN 09/06/16 08/19/19 History Cholecalciferol [Vitamin D3] 4,000 unit PO DAILY 11/09/17 08/19/19 History Lisinopril [Prinivil] 10 mg PO BID 11/09/17 08/19/19 History [place]-3 Fatty Acids/Fish Oil [Fish 1 cap PO TID 11/09/17 08/19/19 History Oil 1,000 mg Softgel] Testosterone Cypionate 200 mg IM MO 11/09/17 08/19/19 History [Depo-Testosterone] Ubidecarenone [Co Q-10] 300 mg PO DAILY 11/09/17 08/19/19 History amLODIPine [Norvasc] 5 mg PO DAILY 11/09/17 08/19/19 History Amitriptyline HCl [Elavil] 10 mg PO HS 08/19/19 08/19/19 History Aspirin EC [Ecotrin Low Dose] 324 mg PO DAILY 08/19/19 08/19/19 History DULoxetine HCL [Cymbalta] 30 mg PO DAILY 08/19/19 08/19/19 History Modafinil [Provigil] 200 mg PO DAILY 08/19/19 08/19/19 History Allergies Allergy/AdvReac Type Severity Reaction Status Date / Time Milk Containing Products Allergy Severe Rash/Hives/ Verified 08/19/19 14:26 [Dairy] Diarrhea Physical Exam Vitals: Vital Signs Temp Pulse Pulse Resp BP BP Pulse Ox 08/20/19 07:37 97.5 F L 52 L 124/80 99 08/20/19 04:00 97.4 F L 49 L 18 128/81 98 08/19/19 23:59 98.1 F 60 18 123/71 97 08/19/19 23:32 58 L 18 08/19/19 19:35 18 08/19/19 19:14 98.4 F 58 L 18 128/73 98 08/19/19 15:11 98.0 F 59 L 18 160/90 96 08/19/19 14:44 76 16 147/85 99 08/19/19 12:21 97.9 F 77 18 152/90 96 Intake and Output 08/19/19 08/20/19 08/20/19 22:59 06:59 14:59 Intake Total 1105 Balance 1105 Intake: Oral 1105 Other: Voiding Method Toilet Toilet # Voids 1 Weight 110.677 kg PHYSICAL EXAMINATION: HEENT: Head is atraumatic, normocephalic. Pupils equal, round. Neck is supple. There is no elevated jugular venous pressure. HEART EXAMINATION: Heart sounds regular, S1 and S2 normal. No murmur or gallop heard. CHEST EXAMINATION: Lungs are clear to auscultation and precussion. No chest wall tenderness is noted on palpation or with deep breathing. ABDOMEN: Soft, nontender. Bowel sounds are heard. No organomegaly noted. EXTREMITIES: 1+ peripheral pulses with no evidence of peripheral edema and no calf tenderness noted. NEUROLOGIC patient is awake, alert and oriented x3. . Results 08/19/19 12:40 08/19/19 12:40 Cardiac Enzymes 08/19/19 08/19/19 08/19/19 Range/Units 12:40 12:40 18:33 AST 36 (17-59) U/L Troponin I <0.012 <0.012 (0.000-0.034) ng/mL 08/20/19 Range/Units 01:00 AST (17-59) U/L Troponin I <0.012 (0.000-0.034) ng/mL Coagulation 08/19/19 Range/Units 12:40 PT 10.7 (9.0-12.0) sec APTT 22.6 (22.0-30.0) sec Lipids 08/19/19 Range/Units 12:24 Triglycerides 133 (<150) mg/dL Cholesterol 106 (<200) mg/dL HDL Cholesterol 26 L (40-60) mg/dL CBC 08/19/19 Range/Units 12:40 WBC 5.2 (3.8-10.6) k/uL RBC 4.82 (4.30-5.90) m/uL Hgb 14.7 (13.0-17.5) gm/dL Hct 42.2 (39.0-53.0) % Plt Count 180 (150-450) k/uL Comprehensive Metabolic Panel 08/19/19 Range/Units 12:40 Sodium 140 (137-145) mmol/L Potassium 4.6 (3.5-5.1) mmol/L Chloride 110 H (98-107) mmol/L Carbon Dioxide 21 L (22-30) mmol/L BUN 12 (9-20) mg/dL Creatinine 1.14 (0.66-1.25) mg/dL Glucose 97 (74-99) mg/dL Calcium 9.1 (8.4-10.2) mg/dL AST 36 (17-59) U/L ALT 23 (4-49) U/L Alkaline Phosphatase 39 (38-126) U/L Total Protein 6.6 (6.3-8.2) g/dL Albumin 4.3 (3.5-5.0) g/dL Current Medications Generic Name Dose Route Start Last Admin Trade Name Freq PRN Reason Stop Dose Admin Acetaminophen 650 mg 08/19/19 16:21 08/19/19 16:44 Tylenol Tab PO 650 mg Q6HR PRN Administration Fever and/ or Pain Amitriptyline HCl 10 mg 08/19/19 21:00 08/19/19 20:31 Elavil PO 10 mg HS [facility] Administration Amlodipine Besylate 5 mg 08/20/19 09:00 Norvasc PO DAILY [facility] Atorvastatin Calcium 80 mg 08/19/19 21:00 08/19/19 20:31 Lipitor PO Not Given HS [facility] Cholecalciferol 4,000 unit 08/20/19 09:00 Vitamin D3 (25 Mcg = 1000 Iu) PO DAILY [facility] Clopidogrel Bisulfate 75 mg 08/20/19 09:00 Plavix PO DAILY [facility] Duloxetine HCl 30 mg 08/20/19 09:00 Cymbalta PO DAILY [facility] Famotidine 40 mg 08/19/19 15:27 Pepcid PO DAILY PRN GI Upset Heparin Sodium (Porcine) 5,000 unit 08/19/19 21:00 08/19/19 20:30 Heparin SQ 5,000 unit Q12HR [facility] Administration Hydromorphone HCl 0.5 mg 08/19/19 14:28 Dilaudid IVP Q3HR PRN Moderate Pain Ibuprofen 400 mg 08/19/19 14:28 Motrin PO Q6HR PRN Mild Pain or Fever > 100.5 Levothyroxine Sodium 150 mcg 08/20/19 06:30 08/20/19 05:58 Synthroid PO 150 mcg DAILY@0630 [facility] Administration Lisinopril 10 mg 08/19/19 21:00 08/19/19 20:31 Zestril PO 10 mg BID [facility] Administration Metoprolol Tartrate 25 mg 08/20/19 09:00 Lopressor PO QAM [facility] Naloxone HCl 0.2 mg 08/19/19 14:28 Narcan IV Q2M PRN Opioid Reversal Nitroglycerin 0.4 mg 08/19/19 14:31 Nitrostat SUBLINGUAL Q5M PRN Chest Pain Non-Formulary Medication 1 cap 08/19/19 16:00 08/19/19 23:27 [place]-3 Fatty Acids/Fish Oil [Fish Oil 1,000 Mg Softgel] PO Not Given TID [facility] Non-Formulary Medication 300 mg 08/20/19 09:00 Ubidecarenone [Co Q-10] PO DAILY [facility] Testosterone Cypionate 200 mg 08/25/19 09:00 Depo-Testosterone IM MO [facility] Intake and Output 08/19/19 08/20/19 08/20/19 22:59 06:59 14:59 Intake Total 1105 Balance 1105 Intake: Oral 1105 Other: Voiding Method Toilet Toilet # Voids 1 Weight 110.677 kg 08/19/19 12:40 08/19/19 12:40 EKG Interpretations (text) Sinus bradycardia with a first-degree AV block Assessment and Plan Assessment: #1 symptoms of left bicep pain, no changes noted on EKG, troponins negative 3 #2 history of CAD with prior FL and stenting with known occlusive disease to the RCA with collaterals #3 hypertension #4 hyperlipidemia #5 metabolic syndrome #6 Tess's #7 chronic pain Plan: From well shooter perspective, acute coronary event has been ruled out. Patient is stable for discharge home and follow-up in the office soon with Dr. KARLY Kwon. HEMODIALYSIS TECHNICIAN note has been reviewed, I agree with a documented findings and plan of care. Patient was seen and examined.
[2019-08-20] MEDS: HEPARIN SODIUM,PORCINE 5,000 UNIT/ML 1 ML VIAL SQ SCH (08:13)
[2019-08-20] MEDS: LISINOPRIL 10 MG TAB PO SCH (08:13)
[2019-08-20] MEDS: NON FORMULARY DRUG (Omega-3 Fatty Acids/Fish Oil [Fish Oil 1,000 Mg Softgel] 1 CAP) PO SCH (08:17)
[2019-08-20] MEDS ORDERED: amLODIPine 5 MG TAB PO SCH (09:00)
[2019-08-20] MEDS ORDERED: METOPROLOL TARTRATE 25 MG TAB PO SCH (09:00)
[2019-08-20] MEDS ORDERED: DULoxetine HCL 30 MG CAPSULE.DR PO SCH (09:00)
[2019-08-20] MEDS ORDERED: CLOPIDOGREL 75 MG TAB PO SCH (09:00)
[2019-08-20] MEDS ORDERED: NON FORMULARY DRUG (Ubidecarenone [Co Q-10] 300 MG) PO SCH (09:00)
[2019-08-20] MEDS ORDERED: CHOLECALCIFEROL 1,000 UNIT TAB PO SCH (09:00)
--- NOTE | 2019-08-20 10:41 | P.DS ---
Providers Date of admission: 08/19/19 14:28 Expected date of discharge: 08/20/19 Attending physician: Praveen Eisenberg MD Consults: 08/19/19 14:29 Consult Physician Routine Consulting Provider: Lisa Chacon Consult Reason/Comments: CP Do you want consulting provider notified?: Yes Primary care physician: Brendan Rowe Hospital Course: Discharge diagnosis Left bicep pain CAD with prior CO and stenting Essential hypertension Hyperlipidemia Tess's Metabolic syndrome Chronic pain Obstructive sleep apnea Hospital course The patient is a 63-year-old malein observation for concern of CAD equivalent after presenting with left bicep pain. Workup was negative as his troponins were less than 0.012, EKG on arrival showed sinus bradycardia with no ST-T wave changes suggestive of ischemia. Chest x-ray showed no acute process. The patient was by cardiology and cleared for stable discharge this discharge process took approximately 30 minutes Focused exam Cardiovascular: Regular rate and rhythm, no murmurs, rubs or gallops. Patient Condition at Discharge: Stable Plan - Discharge Summary Discharge Rx Participant: No New Discharge Prescriptions: Continue Clopidogrel [Plavix] 75 mg PO DAILY Metoprolol Tartrate [Lopressor] 25 mg PO QAM Rosuvastatin Calcium [Crestor] 40 mg PO HS Levothyroxine Sodium [Synthroid] 150 mcg PO DAILY Famotidine [Pepcid] 40 mg PO DAILY PRN PRN Reason: Gi Upset amLODIPine [Norvasc] 5 mg PO DAILY Cholecalciferol [Vitamin D3 (25 Mcg = 1000 Iu)] 4,000 unit PO DAILY [place]-3 Fatty Acids/Fish Oil [Fish Oil 1,000 mg Softgel] 1 cap PO TID Testosterone Cypionate [Depo-Testosterone] 200 mg IM MO Ubidecarenone [Co Q-10] 300 mg PO DAILY Lisinopril [Prinivil] 10 mg PO BID Aspirin EC [Ecotrin Low Dose] 324 mg PO DAILY Modafinil [Provigil] 200 mg PO DAILY Amitriptyline HCl [Elavil] 10 mg PO HS DULoxetine HCL [Cymbalta] 30 mg PO DAILY Discharge Medication List Clopidogrel [Plavix] 75 mg PO DAILY 08/31/16 [History] Levothyroxine Sodium [Synthroid] 150 mcg PO DAILY 08/31/16 [History] Metoprolol Tartrate [Lopressor] 25 mg PO QAM 08/31/16 [History] Rosuvastatin Calcium [Crestor] 40 mg PO HS 08/31/16 [History] Famotidine [Pepcid] 40 mg PO DAILY PRN 09/06/16 [History] Cholecalciferol [Vitamin D3 (25 Mcg = 1000 Iu)] 4,000 unit PO DAILY 11/09/17 [History] Lisinopril [Prinivil] 10 mg PO BID 11/09/17 [History] [place]-3 Fatty Acids/Fish Oil [Fish Oil 1,000 mg Softgel] 1 cap PO TID 11/09/17 [History] Testosterone Cypionate [Depo-Testosterone] 200 mg IM MO 11/09/17 [History] Ubidecarenone [Co Q-10] 300 mg PO DAILY 11/09/17 [History] amLODIPine [Norvasc] 5 mg PO DAILY 11/09/17 [History] Amitriptyline HCl [Elavil] 10 mg PO HS 08/19/19 [History] Aspirin EC [Ecotrin Low Dose] 324 mg PO DAILY 08/19/19 [History] DULoxetine HCL [Cymbalta] 30 mg PO DAILY 08/19/19 [History] Modafinil [Provigil] 200 mg PO DAILY 08/19/19 [History] Follow up Appointment(s)/Referral(s): Lisa Chacon MD [STAFF PHYSICIAN] - 1 Week (office is closed, patient is to call office during office hours to make follow up appointment.) Brendan Rowe MD [Primary Care Provider] - 1-2 days Patient Instructions/Handouts: Chest Pain (DC) Discharge Disposition: HOME SELF-CARE
[2019-08-25] MEDS ORDERED: TESTOSTERONE CYPIONATE 200 MG/ML 1ML VIAL IM SCH (09:00)
== END 2019-08-20 10:14 | disposition home or self-care (01) ==
LOC: EC 12:17 → 1SOBS 14:28
PROVIDERS: ADMIT Family Medicine; ATTEND Family Medicine
DX: M79.622 Pain in left upper arm (principal); E03.9 Hypothyroidism, unspecified; E78.5 Hyperlipidemia, unspecified; M25.50 Pain in unspecified joint; I25.10 Atherosclerotic heart disease of native coronary artery without angina pectoris; E06.3 Autoimmune thyroiditis; G89.29 Other chronic pain; E88.81 Metabolic syndrome and other insulin resistance; I12.9 Hypertensive chronic kidney disease with stage 1 through stage 4 chronic kidney disease, or unspecified chronic kidney disease; N18.9 Chronic kidney disease, unspecified; R00.1 Bradycardia, unspecified; I44.0 Atrioventricular block, first degree; G47.33 Obstructive sleep apnea (adult) (pediatric); Z90.49 Acquired absence of other specified parts of digestive tract; E66.01 Morbid (severe) obesity due to excess calories; I25.2 Old myocardial infarction; Z95.5 Presence of coronary angioplasty implant and graft; Z79.890 Hormone replacement therapy; Z79.899 Other long term (current) drug therapy; Z80.3 Family history of malignant neoplasm of breast; Z79.02 Long term (current) use of antithrombotics/antiplatelets; Z79.82 Long term (current) use of aspirin; Z91.011 Allergy to milk products; Z98.42 Cataract extraction status, left eye; Z98.41 Cataract extraction status, right eye; Z96.1 Presence of intraocular lens; Z82.0 Family history of epilepsy and other diseases of the nervous system; Z83.49 Family history of other endocrine, nutritional and metabolic diseases; Z83.3 Family history of diabetes mellitus; Z83.2 Family history of diseases of the blood and blood-forming organs and certain disorders involving the immune mechanism; Z68.34 Body mass index [BMI] 34.0-34.9, adult
CPT/HCPCS: 93005 ×2; 96372 ×2; 99284; 36415; 80061; 80053; 84443; 83735; 84484 ×2; 85025; 85610; 85730; 71046; G0378 ×2; J1644 ×2

== ENCOUNTER 2022-08-31 02:40 | Emergency (ER) | payer OTHER, MEDICARE ==
[2022-08-31 02:50] VITALS: TEMP 98.1
[2022-08-31] MEDS ORDERED: SODIUM CHLORIDE 0.9% 1,000 ML IV STA (05:06)
[2022-08-31] MEDS ORDERED: diphenhydrAMINE 50 MG/ML 1 ML VIAL IVP STA (05:07)
[2022-08-31] MEDS ORDERED: PROCHLORPERAZINE INJ 10 MG/2 ML VIAL IVP STA (05:07)
[2022-08-31] MEDS ORDERED: DEXAMETHASONE SOD PHOSPHATE 10 MG/ML 1 ML VIAL IVP STA (05:07)
--- NOTE | 2022-08-31 05:09 | ED ---
Headache HPI - General Chief Complaint: Headache Stated Complaint: High BP,Covid,Headache Time Seen by Provider: 08/31/22 04:39 Source: RN notes reviewed, old records reviewed Mode of arrival: ambulatory Limitations: no limitations - History of Present Illness Initial Comments: This is a 66-year-old male to the emergency department for evaluation patient presents today for evaluation regards to headache and bodyaches not feeling well. Patient does have history of recent coronavirus diagnosis on day 567currently. Patient states he is without fevers just does not feel well very weak elevated blood pressure as well. Is having some chest pain concern about his heart as well. MD Complaint: headache -: days(s) Onset Description: gradual Location: right, left, frontal Severity: moderate Severity scale (1-10): 4 Quality: aching, throbbing Consistency: intermittent Worsens With: none Context: recent URI Associated Symptoms: fever, nausea, weakness Other Symptoms: cough, diaphoresis Treatments Prior to Arrival: none - Related Data Home Medications Medication Instructions Recorded Confirmed Clopidogrel [Plavix] 75 mg PO DAILY 08/31/16 08/19/19 Levothyroxine Sodium [Synthroid] 150 mcg PO DAILY 08/31/16 08/19/19 Metoprolol Tartrate [Lopressor] 25 mg PO QAM 08/31/16 08/19/19 Rosuvastatin Calcium [Crestor] 40 mg PO HS 08/31/16 08/19/19 Famotidine [Pepcid] 40 mg PO DAILY PRN 09/06/16 08/19/19 Cholecalciferol [Vitamin D3 (25 4,000 unit PO DAILY 11/09/17 08/19/19 Mcg = 1000 Iu)] Shiloh-3 Fatty Acids/Fish Oil [Fish 1 cap PO TID 11/09/17 08/19/19 Oil 1,000 mg Softgel] Testosterone Cypionate 200 mg IM MO 11/09/17 08/19/19 [Depo-Testosterone] Ubidecarenone [Co Q-10] 300 mg PO DAILY 11/09/17 08/19/19 amLODIPine [Norvasc] 5 mg PO DAILY 11/09/17 08/19/19 lisinopriL [Prinivil] 10 mg PO BID 11/09/17 08/19/19 Amitriptyline HCl [Elavil] 10 mg PO HS 08/19/19 08/19/19 Aspirin EC [Ecotrin Low Dose] 324 mg PO DAILY 08/19/19 08/19/19 DULoxetine HCL [Cymbalta] 30 mg PO DAILY 08/19/19 08/19/19 modafiniL [Provigil] 200 mg PO DAILY 08/19/19 08/19/19 Allergies Allergy/AdvReac Type Severity Reaction Status Date / Time Milk Containing Products Allergy Severe Rash/Hives/ Verified 08/31/22 02:46 [Dairy] Diarrhea Review of Systems ROS Statement: Those systems with pertinent positive or pertinent negative responses have been documented in the HPI. ROS Other: All systems not noted in ROS Statement are negative. Past Medical History Past Medical History: Coronary Artery Disease (CAD), Hyperlipidemia, Hyp ertension, Thyroid Disorder Additional Past Medical History / Comment(s): Tess's dx, hypothyroid, diverticular dx. Last Myocardial Infarction Date:: 2012 History of Any Multi-Drug Resistant Organisms: None Reported Past Surgical History: Bowel Resection, Heart Catheterization With Stent Additional Past Surgical History / Comment(s): Total of 5 coronary stents, bowel resection due to diverticular dx-sigmoid colon removed and had colostomy with everntual reversal, colonoscopies, bilateral cataract surgery with lens implants, Past Anesthesia/Blood Transfusion Reactions: No Reported Reaction Additional Past Anesthesia/Blood Transfusion Reaction / Comment(s): Pt does have clausterphobia. Date of Last Stent Placement:: 2012 Past Psychological History: No Psychological Hx Reported Smoking Status: Never smoker Past Alcohol Use History: Occasional Past Drug Use History: None Reported - Past Family History Father History Unknown: Yes Family Medical History: Hyperlipidemia, Thyroid Disorder Additional Family Medical History / Comment(s): Father yrs ago in a MVA. Mother Family Medical History: Dementia Additional Family Medical History / Comment(s): Mother is 79yrs old and has severe dementia. Sister(s) Family Medical History: Cancer, Diabetes Mellitus, Hyperlipidemia, Thyroid Disorder Additional Family Medical History / Comment(s): breast cancer Brother(s) Family Medical History: Deep Vein Thrombosis (DVT), Hyperlipidemia, Thyroid Disorder General Exam Limitations: no limitations General appearance: alert, in no apparent distress, anxious Head exam: Present: atraumatic, normocephalic, normal inspection Eye exam: Present: normal appearance, PERRL, EOMI. Absent: scleral icterus, conjunctival injection, periorbital swelling ENT exam: Present: normal exam, mucous membranes moist Neck exam: Present: normal inspection. Absent: tenderness, meningismus, lymphad enopathy Respiratory exam: Present: normal lung sounds bilaterally. Absent: respiratory distress, wheezes, rales, rhonchi, stridor Cardiovascular Exam: Present: regular rate, normal rhythm, normal heart sounds. Absent: systolic murmur, diastolic murmur, rubs, gallop, clicks GI/Abdominal exam: Present: soft, normal bowel sounds. Absent: distended, tenderness, guarding, rebound, rigid Extremities exam: Present: normal inspection, full ROM, normal capillary refill. Absent: tenderness, pedal edema, joint swelling, calf tenderness Back exam: Present: normal inspection Neurological exam: Present: alert, oriented X3, CN II-XII intact Psychiatric exam: Present: normal affect, normal mood Skin exam: Present: warm, dry, intact, normal color. Absent: rash Course Vital Signs 08/31/22 08/31/22 08/31/22 02:46 05:26 06:00 Temperature 98.1 F Pulse Rate 64 60 56 L Respiratory 18 18 16 Rate Blood Pressure 142/100 145/102 137/103 O2 Sat by Pulse 96 97 98 Oximetry 08/31/22 06:30 Temperature Pulse Rate 62 Respiratory 16 Rate Blood Pressure 147/94 O2 Sat by Pulse 98 Oximetry - Reevaluation(s) Reevaluation #1: 08/31/22 06:44 Medical records reviewed Reevaluation #2: 08/31/22 06:44 Patient symptoms are improved here in the ER Reevaluation #3: 08/31/22 06:44 Patient informed of results and questions answered Reevaluation #4: 08/31/22 06:44 Differential Weakness: Hypoglycemia, shock, sepsis, hyponatremia, anemia, infection, AK, ETOH, adverse medicine reaction, overdose, stroke, this is not meant to be an all-inclusive list. Reevaluation #5: 08/31/22 06:44 Was pt. sent in by a medical professional or institution? @ -nono Did you speak to anyone other than the patient for history? @ -no Did you review nursing and triage notes? @ -agree Were old charts reviewed? @ -no Differential Diagnosis? @ -multiple complaints EKG interpreted by me (3pts min.)? @ -yes X-rays interpreted by me (1pt min.)? @ -yes CT interpreted by me (1pt min.)? @ -[none] U/S interpreted by me (1pt. min.)? @ -[none] What testing was considered but not performed? (CT, X-rays, U/S, labs)? Why? @ no What meds were considered but not given? Why? @ -no Did you discuss the management of the patient with other professionals? @ -no Did you reconcile home meds? @ -[none] Was smoking cessation discussed for >3mins.? @ -[none] Was critical care preformed (if so, how long)? @ -[none] Were there social determinants of health that impacted care today? How? (Homelessness, low income, unemployed, alcoholism, drug addiction, transportation, low edu. Level, literacy, decrease access to med. care, shelter, rehab)? @ -no Was there de-escalation of care discussed even if they declined? (Discuss DNR or withdrawal of care, Hospice)? @ -no What co-morbidities impacted this encounter? (DM, HTN, Smoking, COPD, CAD, Cancer, CVA, Hep., AIDS, mental health diagnosis, sleep apnea, morbid obesity)? @ -nod Was patient admitted / discharged? @ -dc Undiagnosed new problem with uncertain prognosis? @ -[none] Drug Therapy requiring intensive monitoring for toxicity (Heparin, Nitro, Insulin, Cardizem)? @ -[none] Were any procedures done? @ -[none] Diagnosis/symptom? @ -[default] Acute, or Chronic, or Acute on Chronic? @ -[default] Uncomplicated (without systemic symptoms) or Complicated (systemic symptoms)? @ -[default] Side effects of treatment? @ -[none] Exacerbation, Progression, or Severe Exacerbation] @ -[no] Poses a threat to life or bodily function? @ -[no] 09/07/22 00:59 Medical Decision Making - Medical Decision Making 66 male to the emergency department for evaluation of headache secondary to coronavirus and illness. Patient feels much improved here in the ER CT brain and chest x-ray are negative here in the ER he can be discharged home - Lab Data Result diagrams: 08/31/22 05:24 08/31/22 05:24 Lab Results 08/31/22 08/31/22 08/31/22 Range/Units 05:24 05:24 05:24 WBC 6.6 (3.8-10.6) k/uL RBC 5.61 (4.30-5.90) m/uL Hgb 16.4 (13.0-17.5) gm/dL Hct 47.4 (39.0-53.0) % MCV 84.4 (80.0-100.0) fL MCH 29.3 (25.0-35.0) pg MCHC 34.7 (31.0-37.0) g/dL RDW 14.7 (11.5-15.5) % Plt Count 151 (150-450) k/uL MPV 8.0 Neutrophils % 55 % Lymphocytes % 33 % Monocytes % 7 % Eosinophils % 2 % Basophils % 1 % Neutrophils # 3.6 (1.3-7.7) k/uL Lymphocytes # 2.2 (1.0-4.8) k/uL Monocytes # 0.5 (0-1.0) k/uL Eosinophils # 0.1 (0-0.7) k/uL Basophils # 0.0 (0-0.2) k/uL Sodium 138 (137-145) mmol/L Potassium 4.8 (3.5-5.1) mmol/L Chloride 107 (98-107) mmol/L Carbon Dioxide 24 (22-30) mmol/L Anion Gap 7 mmol/L BUN 16 (9-20) mg/dL Creatinine 1.24 (0.66-1.25) mg/dL Est GFR (CKD-EPI)AfAm 71 (>60 ml/min/1.73 sqM) Est GFR (CKD-EPI)NonAf 61 (>60 ml/min/1.73 sqM) Glucose 77 (74-99) mg/dL Plasma Lactic Acid Albert 0.8 (0.7-2.0) mmol/L Calcium 8.6 (8.4-10.2) mg/dL Phosphorus 4.1 (2.5-4.5) mg/dL Magnesium 1.9 (1.6-2.3) mg/dL Total Bilirubin 0.9 (0.2-1.3) mg/dL AST 45 (17-59) U/L ALT 31 (4-49) U/L Alkaline Phosphatase 24 L (38-126) U/L Troponin I (0.000-0.034) ng/mL Total Protein 6.5 (6.3-8.2) g/dL Albumin 4.0 (3.5-5.0) g/dL 08/31/22 Range/Units 05:24 WBC (3.8-10.6) k/uL RBC (4.30-5.90) m/uL Hgb (13.0-17.5) gm/dL Hct (39.0-53.0) % MCV (80.0-100.0) fL MCH (25.0-35.0) pg MCHC (31.0-37.0) g/dL RDW (11.5-15.5) % Plt Count (150-450) k/uL MPV Neutrophils % % Lymphocytes % % Monocytes % % Eosinophils % % Basophils % % Neutrophils # (1.3-7.7) k/uL Lymphocytes # (1.0-4.8) k/uL Monocytes # (0-1.0) k/uL Eosinophils # (0-0.7) k/uL Basophils # (0-0.2) k/uL Sodium (137-145) mmol/L Potassium (3.5-5.1) mmol/L Chloride (98-107) mmol/L Carbon Dioxide (22-30) mmol/L Anion Gap mmol/L BUN (9-20) mg/dL Creatinine (0.66-1.25) mg/dL Est GFR (CKD-EPI)AfAm (>60 ml/min/1.73 sqM) Est GFR (CKD-EPI)NonAf (>60 ml/min/1.73 sqM) Glucose (74-99) mg/dL Plasma Lactic Acid Albert (0.7-2.0) mmol/L Calcium (8.4-10.2) mg/dL Phosphorus (2.5-4.5) mg/dL Magnesium (1.6-2.3) mg/dL Total Bilirubin (0.2-1.3) mg/dL AST (17-59) U/L ALT (4-49) U/L Alkaline Phosphatase (38-126) U/L Troponin I <0.012 (0.000-0.034) ng/mL Total Protein (6.3-8.2) g/dL Albumin (3.5-5.0) g/dL - EKG Data -: EKG Interpreted by Me (EKG sinus 62 CA 276 QRS 108 QTc 386) - Radiology Data Radiology results: report reviewed (CT brain and chest x-ray are negative for acute disease), image reviewed Disposition Clinical Impression: Coronavirus infection, Generalized weakness, Headache, Nausea, Dizziness Disposition: HOME SELF-CARE Condition: Good Instructions (If sedation given, give patient instructions): Acute Headache (ED) Is patient prescribed a controlled substance at d/c from ED?: No Referrals: Brendan Roew MD [Primary Care Provider] - 1-2 days Time of Disposition: 07:00
--- NOTE | 2022-08-31 06:07 | CT ---
EXAMINATION TYPE: CT brain wo con DATE OF EXAM: 08/31/2022 COMPARISON: 08/31/2016 HISTORY: HIGHTOWER CT DLP: 1201.9 mGycm Automated exposure control for dose reduction was used. Images of the brain obtained with no contrast. Ventricles have normal size. There is no mass effect or midline shift. No sign of intracranial hemorr anant. The calvarium is intact. No evidence of cerebral edema. There is normal aeration of the mastoid sinuses. IMPRESSION: Negative unenhanced head CT scan. No adverse change.
[2022-08-31] MEDS ORDERED: KETOROLAC 15 MG/ML 1 ML VIAL IVP STA (06:12)
--- NOTE | 2022-08-31 06:13 | XR ---
EXAMINATION TYPE: XR chest 1V portable DATE OF EXAM: 08/31/2022 COMPARISON: 08/19/2019 HISTORY: Cough TECHNIQUE: Single view FINDINGS: Heart is normal. Lungs are clear. Diaphragm is normal. Bony thorax appears normal. IMPRESSION: Normal chest. No change.
[2022-08-31 06:25] LABS: Calcium 8.6 mg/dL (8.4-10.2); Phosphorus 4.1 mg/dL (2.5-4.5); Total Bilirubin 0.9 mg/dL (0.2-1.3); Total Protein 6.5 g/dL (6.3-8.2)
[2022-08-31 06:32] LABS: Basophils % (A) 1 %; Eosinophils # (A) 0.1 k/uL (0-0.7); Eosinophils % (A) 2 %; HCT 47.4 % (39.0-53.0); HGB 16.4 gm/dL (13.0-17.5); Lymphocytes # (A) 2.2 k/uL (1.0-4.8); Lymphocytes % (A) 33 %; MCH 29.3 pg (25.0-35.0); MCHC 34.7 g/dL (31.0-37.0); MCV 84.4 fL (80.0-100.0); Monocytes # (A) 0.5 k/uL (0-1.0); Monocytes % (A) 7 %; Neutrophils # (A) 3.6 k/uL (1.3-7.7); Neutrophils % (A) 55 %; Platelet Count 151 k/uL (150-450); RBC 5.61 m/uL (4.30-5.90); RDW 14.7 % (11.5-15.5); WBC 6.6 k/uL (3.8-10.6)
[2022-08-31] MEDS ORDERED: LORazepam 2 MG/ML INJ IV STA (06:43)
[2022-08-31 06:48] VITALS: BP 147/94; PULSE 62; RESP 16
[2022-08-31 06:51] LABS: Magnesium 1.9 mg/dL (1.6-2.3); Potassium 4.8 mmol/L (3.5-5.1)
== END 2022-08-31 07:51 | disposition home or self-care (01) ==
LOC: EC 02:40
DX: U07.1 COVID-19 (principal); I25.10 Atherosclerotic heart disease of native coronary artery without angina pectoris; E78.5 Hyperlipidemia, unspecified; I10 Essential (primary) hypertension; E03.9 Hypothyroidism, unspecified; Z91.011 Allergy to milk products; Z79.890 Hormone replacement therapy; Z79.899 Other long term (current) drug therapy
CPT/HCPCS: 36415; 93005; 80053; 83605; 83735; 84100; 84484; 85025; 71045; 70450; 99284; 96374; 96375 ×4; 96361; J2060; J1200; J0780; J1100; J1885